=== PATIENT | female | born 1965 | race Caucasian/White ===

== ENCOUNTER 2020-08-03 11:31 | Emergency (ER) | payer OTHER, SELFPAY ==
--- NOTE | ~2020-08-03 | CT_ITS ---
EXAMINATION: CT ABDOMEN AND PELVIS WITHOUT CONTRAST CLINICAL INFORMATION: Abdominal pain and diarrhea with bloating COMPARISON: None TECHNIQUE: Multidetector volumetric imaging was performed from the superior aspect of the liver through the pubic symphysis. Sagittal and coronal reformatted images were obtained on the technologist's workstation. This CT examination was performed using dose optimization techniques as appropriate, variously including the following: *Automated exposure control *Adjustment of mA and/or kV according to patient size (this includes techniques or standardized protocols for targeted exams where dose is matched to indication/reason for exam; i.e. extremities or head) *Use of iterative reconstruction technique DLP: 372 mGy-cm FINDINGS: LUNG BASES: The visualized lung bases are unremarkable. No pleural or pericardial effusion. LIVER, GALLBLADDER, AND BILIARY TREE: The liver is normal in size, shape, and attenuation. No focal hepatic lesion or biliary ductal dilatation is present. Gallbladder surgically absent. PANCREAS: Unremarkable. SPLEEN: Unremarkable. ADRENAL GLANDS: Unremarkable. KIDNEYS AND URETERS: The right kidney appears unremarkable without hydronephrosis, calculi, or suspicious mass. The right ureter appears unremarkable. There is a 2 mm nonobstructing calcification within the lower pole of the left kidney. No hydronephrosis. No focal mass appreciated. Left ureter appears unremarkable. BLADDER: Gallbladder is decompressed. No suspicious findings appreciated. Some phleboliths are seen about the pelvis. GASTROINTESTINAL TRACT: No dilated loops of large or small bowel are evident. No free air or free fluid is identified. No pericolonic inflammatory changes seen. No evidence of acute appendicitis. Calcified density is seen within the as ascending colon. ABDOMINAL WALL: There is a small fat-containing umbilical hernia. LYMPH NODES: There is a borderline enlarged mesenteric lymph nodes seen with short axis diameter of 9 mm. No suspicious lymphadenopathy. VASCULAR: Unremarkable. PELVIC VISCERA: Unremarkable. OSSEOUS STRUCTURES: There is mild scoliosis of the lumbar spine convex right and in the area where there is a compression fracture central and left side superior endplate of L4. There is narrowing of the L3-4 and L5-S1 disc spaces. There is degenerative marginal spurring seen at multiple levels. CT/CT abdomen pelvis wo con IMPRESSION: No evidence of colitis or acute appendicitis. No dilated loops of large or small bowel. No evidence of obstructive uropathy.
[2020-08-03 11:36] VITALS: BP 137/70; PULSE 61; RESP 18; TEMP 37.1; O2SAT 99; BMI 20.7
--- NOTE | 2020-08-03 12:43 | ED.ABDPAIN ---
HPI - Abdominal Pain General Chief Complaint: Abdominal Pain <MEAGAN Page - Last Filed: 08/03/20 16:49> Stated Complaint: stomach pain <MEAGAN Page - Last Filed: 08/03/20 16:49> Time Seen by Provider: 08/03/20 12:09 <MEAGAN Page Last Filed: 08/03/20 16:49> Source: patient <MEAGAN Page - Last Filed: 08/03/20 16:49> Mode of arrival: ambulatory <MEAGAN Page - Last Filed: 08/03/20 16:49> Limitations: language barrier <MEAGAN Page - Last Filed: 08/03/20 16:49> History of Present Illness HPI narrative: 54 y/o female presenting to the ER from home with 2 days of worsening lower abdominal pain, bloating and non-bloody diarrhea. She was recently seen by her doctor at [facility] and diagnosed with bacteria in the intestine and was prescribed Ciprofloxacin. She is a poor historian. She states her diarrhea worsened this morning prompting ER evaluation. She denies fevers or vomiting. No abdominal surgeries in the past. No urinary symptoms or sick contacts. She states since coming to the ER her diarrhea has improved. <MEAGAN Page - Last Filed: 08/03/20 16:49> MD elicited complaint: abdominal pain and other (diarrhea) <MEAGAN Page - Last Filed: 08/03/20 16:49> Pertinent past history: none <MEAGAN Page - Last Filed: 08/03/20 16:49> Onset (ago): day(s) (2) <MEAGAN Page - Last Filed: 08/03/20 16:49> Pain Consistency: intermittent <MEAGAN Page Last Filed: 08/03/20 16:49> Location: RLQ and LLQ <MEAGAN Page Last Filed: 08/03/20 16:49> Severity: moderate <MEAGAN Page Last Filed: 08/03/20 16:49> Quality: cramping <MEAGAN Page - Last Filed: 08/03/20 16:49> Radiation: none <MEAGAN Page Last Filed: 08/03/20 16:49> Migration to: no migration <MEAGAN Page Last Filed: 08/03/20 16:49> Exacerbating factors: eating and movement <MEAGAN Page Last Filed: 08/03/20 16:49> Relieving factors: rest <MEAGAN Page Last Filed: 08/03/20 16:49> Context: recent antibiotic use <MEAGAN Page Last Filed: 08/03/20 16:49> Associated symptoms: nausea and diarrhea <MEAGAN Page Last Filed: 08/03/20 16:49> Related Data Allergies/Adverse Reactions: Allergies Allergy/AdvReac Type Severity Reaction Status Date / Time No Known Allergies Allergy Verified 08/03/20 11:43 <MEAGAN Page Last Filed: 08/03/20 16:49> Review of Systems Review of Systems Constitutional: No Fever, No Chills ENT/Mouth: No sore throat, No Rhinorrhea, No Swallowing Difficulty Cardiovascular: No Chest Pain, No SOB, No Orthopnea, No Edema Respiratory: No Cough, No Sputum, No Wheezing, No dyspnea Gastrointestinal: + Nausea, No Vomiting, + Diarrhea, + abdominal Pain, No Hematochezia, No Melena Genitourinary: No Dysuria, No Urinary Frequency, No Hematuria Musculoskeletal: No joint pain, No Myalgias Skin: No Skin Lesions, No rash Neuro: No Weakness, No Numbness, No Dizziness, No Headache Psych: No Anxiety/Panic, No Depression Heme/Lymph: No Bruising, No Lymphadenopathy Endocrine: No Polyuria, No Polydipsia <MEAGAN Page Last Filed: 08/03/20 16:49> Physical Exam Vital Signs: Vital Signs: Last Vital Signs Temp 98.7 F 08/03/20 11:36 Pulse 61 08/03/20 11:36 Resp 18 08/03/20 11:36 BP 137/70 08/03/20 11:36 Pulse Ox 99 08/03/20 11:36 Body Mass Index 20.7 Appearance: Alert. Oriented X3. No acute distress. Eyes: Pupils equal, round and reactive to light. ENT: Pharynx normal. Neck: Normal inspection. Neck supple. CVS: Normal heart rate and rhythm. Pulses normal. Respiratory: No respiratory distress. Breath sounds normal. Abdomen: Soft with mild lower abdominal tenderness, no rebound or guarding. normal +BS x4 Skin: Skin warm and dry. Normal skin color. Normal skin turgor. No rashes. Extremities: No lower extremity edema. Neuro: Oriented X 3. No motor deficit. No sensory deficit. <MEAGAN Page - Last Filed: 08/03/20 16:49> Vital Signs: Last Vital Signs Temp 98.7 F 08/03/20 11:36 Pulse 61 08/03/20 11:36 Resp 18 08/03/20 11:36 BP 137/70 08/03/20 11:36 Pulse Ox 99 08/03/20 11:36 Body Mass Index 20.7 <Karel Shaikh MD - Last Filed: 08/21/20 13:34> Course Course Course Narrative: 54 y/o female presenting with 2 days of lower abdominal pain and non-bloody diarrhea. Recently started on Cipro by her PCP, unclear why. Concern is for diverticulitis vs C diff collitis. Could also have UTI, gastroenteritis, cholecystitis. Will get lab workup and CT scan for further evaluation. She states her diarrhea has improved since this morning. <MEAGAN Page - Last Filed: 08/03/20 16:49> I have reviewed the chart <Karel Shaikh MD - Last Filed: 08/21/20 13:34> Reevaluation(s) Reevaluation #1: Delay in labs as patient was contemplating wheter or not she wanted to get labs done or not. She is thinking about it and will reassess. <MEAGAN Page - Last Filed: 08/03/20 16:49> Reevaluation #2: Patient finally agreeable to labs but she is refusing an IV. Explained importance of IV for contrast for CT scan but she continued to decline. Will get dry CT which is not preferred. She has had no diarrhea in the last few hours of being in the ER, less likely C diff. <MEAGAN Page - Last Filed: 08/03/20 16:49> Reevaluation #3: WBC is normal as well as LFTs and lipase. CT scan is pending. <MEAGAN Page - Last Filed: 08/03/20 16:49> Additional Reevaluation(s): CT scan was negative. NO episodes of diarrhea while in the ER. Doubt C diff. She is stable for d/c with plans to f/u with her PCP. <MEAGAN Page - Last Filed: 08/03/20 16:49> MDM - Abdominal Pain Lab Data Result diagrams: : 08/03/20 15:01 08/03/20 15:01 <MEAGAN Page - Last Filed: 08/03/20 16:49> Labs: Lab Results 08/03/20 08/03/20 08/03/20 Range/Units 15:01 15:01 15:01 WBC 8.2 (4.8-10.8) X10*3/uL RBC 4.94 (4.20-5.50) X10*6/uL Hgb 14.2 (12.0-16.0) g/dl Hct 44.2 (37-47) % MCV 89.5 (80-98) fL MCH 28.7 (27.0-33.0) pg MCHC 32.1 (31.0-35.0) g/dl RDW 14.2 (11.0-16.0) % Plt Count 218 (160-400) X10*3/uL MPV 9.4 (9.4-12.3) fL Immature Gran % (Auto) 0.2 (0.0-0.4) % Neut % (Auto) 70.4 (45-73) % Lymph % (Auto) 20.5 (20-40) % [place] % (Auto) 5.4 (2-11) % Eos % (Auto) 3.4 (0-4) % Baso % (Auto) 0.1 (0-2) % Lymph # (Auto) 1.7 (1.2-4.9) X10*3/uL [place] # (Auto) 0.4 (0.1-1.2) X10*3/uL Eos # (Auto) 0.3 (0.0-0.4) X10*3/uL Baso # (Auto) 0.0 (0.0-0.2) X10*3/uL Abs Immat Gran (auto) 0.02 (0.00-0.03) X10*3/uL Absolute Neuts (auto) 5.8 (2.0-8.3) X10*3/uL Absolute Nucleated RBC 0.000 (0.0-0.012) X10*3/uL Nucleated RBC % (auto) 0.0 (0.0-0.2) /100WBC Hold Blue Top SEE NOTE Sodium 144 (135-145) mmol/L Potassium 4.2 (3.3-5.1) mmol/L Chloride 109 H (96-108) mmol/L Carbon Dioxide 27 (22-29) mmol/L Anion Gap 12 (12-20) BUN 9 (9-16) mg/dL Creatinine 0.66 (0.5-1.4) mg/dL Estim Creat Clear Calc 72.7 Estimated GFR > 60 Random Glucose 92 (60-115) mg/dL Lactic Acid (0.5-2.0) mmol/L Calcium 9.5 (8.4-10.2) mg/dL Magnesium 2.2 (1.6-2.6) mg/dL Total Bilirubin 0.7 (0.0-1.0) mg/dL Direct Bilirubin 0.2 (0.0-0.5) mg/dL AST 15 (5-31) U/L ALT 14 (0-31) U/L Alkaline Phosphatase 100 (39-117) U/L Total Protein 6.6 (6.5-8.0) g/dL Albumin 4.3 (3.5-5.0) g/dL Lipase (8-78) U/L 08/03/20 08/03/20 Range/Units 15:01 15:01 WBC (4.8-10.8) X10*3/uL RBC (4.20-5.50) X10*6/uL Hgb (12.0-16.0) g/dl Hct (37-47) % MCV (80-98) fL MCH (27.0-33.0) pg MCHC (31.0-35.0) g/dl RDW (11.0-16.0) % Plt Count (160-400) X10*3/uL MPV (9.4-12.3) fL Immature Gran % (Auto) (0.0-0.4) % Neut % (Auto) (45-73) % Lymph % (Auto) (20-40) % [place] % (Auto) (2-11) % Eos % (Auto) (0-4) % Baso % (Auto) (0-2) % Lymph # (Auto) (1.2-4.9) X10*3/uL [place] # (Auto) (0.1-1.2) X10*3/uL Eos # (Auto) (0.0-0.4) X10*3/uL Baso # (Auto) (0.0-0.2) X10*3/uL Abs Immat Gran (auto) (0.00-0.03) X10*3/uL Absolute Neuts (auto) (2.0-8.3) X10*3/uL Absolute Nucleated RBC (0.0-0.012) X10*3/uL Nucleated RBC % (auto) (0.0-0.2) /100WBC Hold Blue Top Sodium (135-145) mmol/L Potassium (3.3-5.1) mmol/L Chloride (96-108) mmol/L Carbon Dioxide (22-29) mmol/L Anion Gap (12-20) BUN (9-16) mg/dL Creatinine (0.5-1.4) mg/dL Estim Creat Clear Calc Estimated GFR Random Glucose (60-115) mg/dL Lactic Acid 0.5 (0.5-2.0) mmol/L Calcium (8.4-10.2) mg/dL Magnesium (1.6-2.6) mg/dL Total Bilirubin (0.0-1.0) mg/dL Direct Bilirubin (0.0-0.5) mg/dL AST (5-31) U/L ALT (0-31) U/L Alkaline Phosphatase (39-117) U/L Total Protein (6.5-8.0) g/dL Albumin (3.5-5.0) g/dL Lipase 41 (8-78) U/L <MEAGAN Page - Last Filed: 08/03/20 16:49> Lab Results 03/08/03/20 08/03/20 Range/Units 15:01 15:01 15:01 WBC 8.2 (4.8-10.8) X10*3/uL RBC 4.94 (4.20-5.50) X10*6/uL Hgb 14.2 (12.0-16.0) g/dl Hct 44.2 (37-47) % MCV 89.5 (80-98) fL MCH 28.7 (27.0-33.0) pg MCHC 32.1 (31.0-35.0) g/dl RDW 14.2 (11.0-16.0) % Plt Count 218 (160-400) X10*3/uL MPV 9.4 (9.4-12.3) fL Immature Gran % (Auto) 0.2 (0.0-0.4) % Neut % (Auto) 70.4 (45-73) % Lymph % (Auto) 20.5 (20-40) % [place] % (Auto) 5.4 (2-11) % Eos % (Auto) 3.4 (0-4) % Baso % (Auto) 0.1 (0-2) % Lymph # (Auto) 1.7 (1.2-4.9) X10*3/uL [place] # (Auto) 0.4 (0.1-1.2) X10*3/uL Eos # (Auto) 0.3 (0.0-0.4) X10*3/uL Baso # (Auto) 0.0 (0.0-0.2) X10*3/uL Abs Immat Gran (auto) 0.02 (0.00-0.03) X10*3/uL Absolute Neuts (auto) 5.8 (2.0-8.3) X10*3/uL Absolute Nucleated RBC 0.000 (0.0-0.012) X10*3/uL Nucleated RBC % (auto) 0.0 (0.0-0.2) /100WBC Hold Blue Top SEE NOTE Sodium 144 (135-145) mmol/L Potassium 4.2 (3.3-5.1) mmol/L Chloride 109 H (96-108) mmol/L Carbon Dioxide 27 (22-29) mmol/L Anion Gap 12 (12-20) BUN 9 (9-16) mg/dL Creatinine 0.66 (0.5-1.4) mg/dL Estim Creat Clear Calc 72.7 Estimated GFR > 60 Random Glucose 92 (60-115) mg/dL Lactic Acid (0.5-2.0) mmol/L Calcium 9.5 (8.4-10.2) mg/dL Magnesium 2.2 (1.6-2.6) mg/dL Total Bilirubin 0.7 (0.0-1.0) mg/dL Direct Bilirubin 0.2 (0.0-0.5) mg/dL AST 15 (5-31) U/L ALT 14 (0-31) U/L Alkaline Phosphatase 100 (39-117) U/L Total Protein 6.6 (6.5-8.0) g/dL Albumin 4.3 (3.5-5.0) g/dL Lipase (8-78) U/L 08/03/20 08/03/20 Range/Units 15:01 15:01 WBC (4.8-10.8) X10*3/uL RBC (4.20-5.50) X10*6/uL Hgb (12.0-16.0) g/dl Hct (37-47) % MCV (80-98) fL MCH (27.0-33.0) pg MCHC (31.0-35.0) g/dl RDW (11.0-16.0) % Plt Count (160-400) X10*3/uL MPV (9.4-12.3) fL Immature Gran % (Auto) (0.0-0.4) % Neut % (Auto) (45-73) % Lymph % (Auto) (20-40) % [place] % (Auto) (2-11) % Eos % (Auto) (0-4) % Baso % (Auto) (0-2) % Lymph # (Auto) (1.2-4.9) X10*3/uL [place] # (Auto) (0.1-1.2) X10*3/uL Eos # (Auto) (0.0-0.4) X10*3/uL Baso # (Auto) (0.0-0.2) X10*3/uL Abs Immat Gran (auto) (0.00-0.03) X10*3/uL Absolute Neuts (auto) (2.0-8.3) X10*3/uL Absolute Nucleated RBC (0.0-0.012) X10*3/uL Nucleated RBC % (auto) (0.0-0.2) /100WBC Hold Blue Top Sodium (135-145) mmol/L Potassium (3.3-5.1) mmol/L Chloride (96-108) mmol/L Carbon Dioxide (22-29) mmol/L Anion Gap (12-20) BUN (9-16) mg/dL Creatinine (0.5-1.4) mg/dL Estim Creat Clear Calc Estimated GFR Random Glucose (60-115) mg/dL Lactic Acid 0.5 (0.5-2.0) mmol/L Calcium (8.4-10.2) mg/dL Magnesium (1.6-2.6) mg/dL Total Bilirubin (0.0-1.0) mg/dL Direct Bilirubin (0.0-0.5) mg/dL AST (5-31) U/L ALT (0-31) U/L Alkaline Phosphatase (39-117) U/L Total Protein (6.5-8.0) g/dL Albumin (3.5-5.0) g/dL Lipase 41 (8-78) U/L <Karel Shaikh MD - Last Filed: 08/21/20 13:34> Critical Care Time Critical Care Time Critical Care Time: No <MEAGAN Page - Last Filed: 08/03/20 16:49> Discharge Plan Discharge Clinical Impression: Diarrhea <MEAGAN Page - Last Filed: 08/03/20 16:49> Patient Disposition: Home, Self-Care <MEAGAN Page - Last Filed: 08/03/20 16:49> Instructions: Acute Diarrhea (ED) <MEAGAN Page - Last Filed: 08/03/20 16:49> Additional Instructions: Your lab workup in the ER today was unremarkable. Your CT scan showed no acute abnormality. Recommend following up with your doctor this week. Recommend a bland diet while you are not feeling well. Drink plenty of water to stay hydrated. If your diarrhea worsens come back to the ER for further evaluation. <MEAGAN Page - Last Filed: 08/03/20 16:49> Stand Alone Forms: Work/School Release <MEAGAN Page - Last Filed: 08/03/20 16:49> Interventions: ED Discharge Assessment Last Done: 08/03/20 17:13 <MEAGAN Page - Last Filed: 08/03/20 16:49> Discharge Date/Time: 08/03/20 17:14 <MEAGAN Page - Last Filed: 08/03/20 16:49> PMFSH Past Medical History Attestation statement: The following information was validated with the patient. <MEAGAN Page - Last Filed: 08/03/20 16:49> Medical History: Medical History Patient denies significant medical history <MEAGAN Page - Last Filed: 08/03/20 16:49> Social History Social History: Social History Advance Directives: No Advance Directives Information Provided: No <MEAGAN Page - Last Filed: 08/03/20 16:49>
--- NOTE | 2020-08-03 13:46 | PC.NURSE ---
this rn and interpretter at bedside, pt has reservations about blood work and iv, asking several questions about their necessity. pt sts give me a minute or two to think about it .
--- NOTE | 2020-08-03 15:09 | PC.NURSE ---
this rn and interpretter again, having discussion w pt whether or not she would like blood work or iv. pt resistant to having iv placed, but willing to have blood drawn. provider aware. will plan for dry ct scan instead. blood labs obtained and sent.
[2020-08-03 15:10] LABS: MANUAL DIFF FLAG NO
[2020-08-03 15:13] LABS: Basophils Percent Auto 0.1 % (0-2); Eosinophils Absolute Auto 0.3 X10*3/uL (0.0-0.4); Eosinophils Percent Auto 3.4 % (0-4); Hematocrit 44.2 % (37-47); Hemoglobin 14.2 g/dl (12.0-16.0); Imm Gran Abs Auto 0.02 X10*3/uL (0.00-0.03); Imm Gran Pct Auto 0.2 % (0.0-0.4); Lymphocytes Absolute Auto 1.7 X10*3/uL (1.2-4.9); Lymphocytes Percent Auto 20.5 % (20-40); Mean Corpuscular HGB Conc 32.1 g/dl (31.0-35.0); Mean Corpuscular Hemoglobin 28.7 pg (27.0-33.0); Mean Corpuscular Volume 89.5 fL (80-98); Mean Platelet Volume 9.4 fL (9.4-12.3); Monocytes Absolute Auto 0.4 X10*3/uL (0.1-1.2); Monocytes Percent Auto 5.4 % (2-11); Neutrophils Absolute Auto 5.8 X10*3/uL (2.0-8.3); Neutrophils Percent Auto 70.4 % (45-73); Platelet Count 218 X10*3/uL (160-400); Red Blood Count 4.94 X10*6/uL (4.20-5.50); Red Cell Distribution Width 14.2 % (11.0-16.0); White Blood Count 8.2 X10*3/uL (4.8-10.8)
[2020-08-03 15:32] LABS: Lactic Acid 0.5 mmol/L (0.5-2.0)
[2020-08-03 15:48] LABS: Lipase 41 U/L (8-78)
[2020-08-03 15:50] LABS: Alanine Aminotransferase 14 U/L (0-31); Albumin Level 4.3 g/dL (3.5-5.0); Alkaline Phosphatase 100 U/L (39-117); Anion Gap 12 (12-20); Aspartate Amino Transferase 15 U/L (5-31); Bilirubin Direct 0.2 mg/dL (0.0-0.5); Bilirubin Total 0.7 mg/dL (0.0-1.0); Blood Urea Nitrogen 9 mg/dL (9-16); Calcium 9.5 mg/dL (8.4-10.2); Carbon Dioxide 27 mmol/L (22-29); Chloride 109 mmol/L (96-108); Creatinine Clr Calc Pharmacy 72.7; Estimated Glomerular Filt Rate > 60; Glucose Random 92 mg/dL (60-115); Magnesium 2.2 mg/dL (1.6-2.6); Potassium 4.2 mmol/L (3.3-5.1); Sodium 144 mmol/L (135-145); Total Protein 6.6 g/dL (6.5-8.0)
== END 2020-08-03 17:14 | disposition home or self-care (01) ==
PROVIDERS: Physician Assistant; Emergency Provider Emergency Medicine; PCP Internal Medicine
DX: R19.7 Diarrhea, unspecified (principal); R10.30 Lower abdominal pain, unspecified
CPT/HCPCS: 36415; 74176; 80048; 80076; 83605; 83690; 83735; 85025; 96360; 99284

== ENCOUNTER 2021-02-17 13:55 | Outpatient (REF) | payer OTHER, SELFPAY ==
[2021-02-17 17:30] LABS: Influenza A PCR NEGATIVE (Negative); Influenza B PCR NEGATIVE (Negative); Resp Syncy Virus RNA Qual PCR NEGATIVE (Negative); SARS COV2 PCR INHOUSE NEGATIVE (Negative)
== END 2021-02-17 13:56 | disposition home or self-care (01) ==
LOC: HO.LAB 13:55
PROVIDERS: Visit Provider Physician Assistant Medical
DX: J06.9 Acute upper respiratory infection, unspecified (principal); Z20.822 Contact with and (suspected) exposure to COVID-19
CPT/HCPCS: 0241U; 36415

== ENCOUNTER 2021-03-12 12:05 | Outpatient (REF) | payer OTHER, SELFPAY ==
--- NOTE | ~2021-03-12 | MM_ITS ---
EXAMINATION: MM SCREENING DIGITAL BREAST TOMOSYNTHESIS, BILATERAL CLINICAL INFORMATION: Screening. Asymptomatic. Status post benign biopsy of the left breast. The lifetime risk of breast cancer based on the Tyrer-Cuzick Model is 5.6%. COMPARISON: Mammography: August 10, 2018 and studies dating back to January 01, 2016 TECHNIQUE: Digital breast tomosynthesis is performed in both the craniocaudal and mediolateral oblique views along with computer-aided detection (CAD). Synthesized 2D images are generated from the tomosynthesis. FINDINGS: There are scattered areas of fibroglandular density (ACR BI-RADS breast composition Category b). There are no significant masses, abnormal calcifications, or other abnormalities. MM/MM tomosynthesis screening BI IMPRESSION: There are no significant changes from prior study. ASSESSMENT: BI-RADS 1: Negative RECOMMENDATION: Routine annual mammography screening. This patient's information was entered into a reminder system with a target due date for their next mammogram.
== END 2021-03-12 12:06 | disposition home or self-care (01) ==
LOC: HO.MAMMO 12:05
PROVIDERS: Visit Provider Internal Medicine
DX: Z12.31 Encounter for screening mammogram for malignant neoplasm of breast (principal)
CPT/HCPCS: 77063; 77067

== ENCOUNTER 2022-08-25 11:16 | Emergency (ER) | payer OTHER, SELFPAY ==
--- NOTE | ~2022-08-25 | XR_ITS ---
EXAMINATION: XR CHEST CLINICAL INFORMATION: Cough and chest pain COMPARISON: None available. TECHNIQUE: Frontal view of the chest was obtained. FINDINGS: The lungs are well expanded. There is no focal consolidation, edema, or effusion. No pneumothorax. The cardiomediastinal silhouette is within normal limits. No acute osseous abnormality. XR/XR chest 1V IMPRESSION: No acute pulmonary disease.
--- NOTE | 2022-08-25 11:20 | ED.CHESTPAIN ---
HPI - Chest Pain General Chief Complaint: Upper Respiratory Symptoms Stated Complaint: chest tightness,diff breathing Time Seen by Provider: 08/25/22 11:49 Related Data Home Medications Medication Instructions Recorded Confirmed cholecalciferol (vitamin D3) 25 25 mcg PO DAILY 12/08/20 02/17/21 mcg (1,000 unit) capsule Previous Rx's Medication Instructions Recorded omeprazole 20 mg capsule,delayed 20 mg PO DAILY #90 caps 03/03/21 release albuterol sulfate 90 mcg/actuation 2 puff inhalation Q4-6H PRN 08/25/22 aerosol inhaler shortness of breath or wheezing #8.5 grams azithromycin 250 mg tablet See Rx Instructions PO .COMPLEX #6 08/25/22 tabs benzonatate 100 mg capsule 100 mg PO TID PRN cough 5 days #15 08/25/22 caps Allergies Allergy/AdvReac Type Severity Reaction Status Date / Time No Known Allergies Allergy Verified 08/25/22 11:26 [facility] Past Medical History Medical History (Updated 08/25/22 @ 13:24 by MEAGAN Tomas) Blurry vision, bilateral GERD (gastroesophageal reflux disease) Hypovitaminosis D Mild asthma Smoker Varicose veins of both lower extremities Surgical History (Updated 12/08/20 @ 17:44 by Elizabeth Rodgers MD) History of tubal ligation Hx laparoscopic cholecystectomy Family History Family History Mother No problems noted. Father Cancer Social History Social History Housing: House Alcohol intake: current Alcohol intake frequency: holidays/special occasions only Alcohol type: beer Patient Tobacco Use Status: Current everyday Tobacco user Tobacco use type: Cigarette Cigarettes Per Day: 8 e-Cigarette/Vaping Use: Never Used Second Hand Smoke Exposure: No Advance Directives: No service: No Current occupational status: employed Current occupational exposures/hazards: No Physical Exam Vital Signs: Vital Signs: Last Vital Signs Temp 98.2 F 08/25/22 11:49 Pulse 63 08/25/22 11:53 Resp 18 08/25/22 11:53 BP 117/64 08/25/22 11:49 Pulse Ox 99 08/25/22 11:49 O2 Del Method Room Air 08/25/22 11:49 BMI result Body Mass Index 22.6 Course Course Course Narrative: CHHAYA--57-year-old female with past medical history of asthma, GERD, presenting to the ED complaining of cough, chills, SOB & CP since last night. States her asthma has been under control for years, doesn't have inhalers or neb machine. Denies fever, travel, sick contacts Coarse cough noted, lungs with slight end exp wheeze, good air movement EKG, Labs, CXR, COVID/FLU ordered Medications Administered Discontinued Medications Generic Name Dose Route Start Last Admin Trade Name Freq PRN Reason Stop Dose Admin Albuterol/Ipratropium 3 ml 08/25/22 11:26 08/25/22 11:52 Albuterol/Iprat 2.5/0.5mg 3 Ml Ampul.Neb INHALE 08/25/22 11:27 3 ml ONCE ONE Administration Medical Decision Making Lab Data 08/25/22 11:34 08/25/22 11:34 Labs: Lab Results 08/25/22 08/25/22 08/25/22 Range/Units 11:34 11:34 11:34 WBC 8.8 (4.8-10.8) X10*3/uL RBC 5.26 (4.20-5.50) X10*6/uL Hgb 15.0 (12.0-16.0) g/dl Hct 46.7 (37.0-47.0) % MCV 88.8 (80.0-98.0) fL MCH 28.5 (27.0-33.0) pg MCHC 32.1 (31.0-35.0) g/dl RDW 14.2 (11.0-16.0) % Plt Count 213 (160-400) X10*3/uL MPV 9.0 L (9.4-12.3) fL Immature Gran % (Auto) 0.1 (0.0-0.4) % Neut % (Auto) 77.1 H (45-73) % Lymph % (Auto) 12.2 L (20-40) % [place] % (Auto) 8.5 (2-11) % Eos % (Auto) 1.6 (0-4) % Baso % (Auto) 0.5 (0-2) % Lymph # (Auto) 1.1 L (1.2-4.9) X10*3/uL [place] # (Auto) 0.8 (0.1-1.2) X10*3/uL Eos # (Auto) 0.1 (0.0-0.4) X10*3/uL Baso # (Auto) 0.0 (0.0-0.2) X10*3/uL Abs Immat Gran (auto) 0.01 (0.00-0.03) X10*3/uL Absolute Neuts (auto) 6.8 (2.0-8.3) x10*3/uL Absolute Nucleated RBC 0.000 (0.0-0.012) X10*3/uL Nucleated RBC % (auto) 0.0 (0.0-0.2) /100WBC Sodium 142 (135-145) mmol/L Potassium 4.9 (3.3-5.1) mmol/L Chloride 106 (96-108) mmol/L Carbon Dioxide 30 H (22-29) mmol/L Anion Gap 11 L (12-20) BUN 8 L (9-16) mg/dL Creatinine 0.76 (0.5-1.4) mg/dL Estim Creat Clear Calc 60.9 Estimated GFR > 60 Random Glucose 111 (60-115) mg/dL Calcium 10.1 D (8.4-10.2) mg/dL Total Bilirubin 0.7 (0.0-1.0) mg/dL Direct Bilirubin 0.2 (0.0-0.5) mg/dL AST 20 (5-31) U/L ALT 22 (0-31) U/L Alkaline Phosphatase 134 H (39-117) U/L Troponin I High Sens 4.0 (<3.5-17.0) ng/L Total Protein 6.8 (6.5-8.0) g/dL Albumin 4.5 (3.5-5.0) g/dL COVID-19 ([facility]) (Negative) COVID-19 Clin Com Influenza Type A ([facility]) (Negative) Influenza Type B (W[facility]IAM) (Negative) Influenza A & B Note 08/25/22 08/25/22 Range/Units 11:34 11:34 WBC (4.8-10.8) X10*3/uL RBC (4.20-5.50) X10*6/uL Hgb (12.0-16.0) g/dl Hct (37.0-47.0) % MCV (80.0-98.0) fL MCH (27.0-33.0) pg MCHC (31.0-35.0) g/dl RDW (11.0-16.0) % Plt Count (160-400) X10*3/uL MPV (9.4-12.3) fL Immature Gran % (Auto) (0.0-0.4) % Neut % (Auto) (45-73) % Lymph % (Auto) (20-40) % [place] % (Auto) (2-11) % Eos % (Auto) (0-4) % Baso % (Auto) (0-2) % Lymph # (Auto) (1.2-4.9) X10*3/uL [place] # (Auto) (0.1-1.2) X10*3/uL Eos # (Auto) (0.0-0.4) X10*3/uL Baso # (Auto) (0.0-0.2) X10*3/uL Abs Immat Gran (auto) (0.00-0.03) X10*3/uL Absolute Neuts (auto) (2.0-8.3) x10*3/uL Absolute Nucleated RBC (0.0-0.012) X10*3/uL Nucleated RBC % (auto) (0.0-0.2) /100WBC Sodium (135-145) mmol/L Potassium (3.3-5.1) mmol/L Chloride (96-108) mmol/L Carbon Dioxide (22-29) mmol/L Anion Gap (12-20) BUN (9-16) mg/dL Creatinine (0.5-1.4) mg/dL Estim Creat Clear Calc Estimated GFR Random Glucose (60-115) mg/dL Calcium (8.4-10.2) mg/dL Total Bilirubin (0.0-1.0) mg/dL Direct Bilirubin (0.0-0.5) mg/dL AST (5-31) U/L ALT (0-31) U/L Alkaline Phosphatase (39-117) U/L Troponin I High Sens (<3.5-17.0) ng/L Total Protein (6.5-8.0) g/dL Albumin (3.5-5.0) g/dL COVID-19 ([facility]) Negative (Negative) COVID-19 Clin Com See Note Influenza Type A (WILLIAM) Negative (Negative) Influenza Type B (WILLIAM) Negative (Negative) Influenza A & B Note See Note Discharge Plan Discharge Clinical Impression: Bronchitis Patient Disposition: Home, Self-Care Instructions: Acute Bronchitis (ED) Additional Instructions: Regrese al servicio de urgencias por cualquier dificultad para respirar, hinchaz?n de las piernas, dolor en la pantorrilla, tos con karine, dificultad para respirar, dolor en el pecho, fiebre intratable, debilidad, escalofr?os, dolor en el pecho al inspirar o cualquier otro s?ntoma preocupante. Por favor, caroline un seguimiento con el proveedor de atenci?n primaria. Prescriptions: New albuterol sulfate 90 mcg/actuation HFA aerosol inhaler 2 puff inhalation Q4-6H PRN (Reason: shortness of breath or wheezing) Qty: 8.5 0RF azithromycin 250 mg tablet See Rx Instructions .ROUTE .COMPLEX Qty: 6 0RF Rx Instructions: For 250 mg dose pack: take 500 mg today (day 1), then 250 mg for 4 days (days 2-5) benzonatate 100 mg capsule 100 mg PO TID PRN (Reason: cough) 5 Days Qty: 15 0RF No Action omeprazole 20 mg capsule,delayed release(DR/EC) 20 mg PO DAILY Qty: 90 0RF cholecalciferol (vitamin D3) 25 mcg (1,000 unit) capsule 25 mcg PO DAILY Stand Alone Forms: Work/School Release Interventions: ED Discharge Assessment Last Done: 08/25/22 14:04 Discharge Date/Time: 08/25/22 14:06 Print Language: Kittitian
--- NOTE | 2022-08-25 11:22 | ECG_ITS ---
Test Reason : chest tightness Blood Pressure : / mmHG Vent. Rate : 060 BPM Atrial Rate : 060 BPM P-R Int : 116 ms QRS Dur : 076 ms QT Int : 396 ms P-R-T Axes : 063 030 047 degrees QTc Int : 396 ms Normal sinus rhythm Normal ECG No previous ECGs available Referred By: Ammy Izquierdo Electronically Signed By:SUSANA CAM
[2022-08-25 11:23] VITALS: BP 93/58; PULSE 83; RESP 22; TEMP 37.6; O2SAT 98; BMI 22.6
[2022-08-25 11:40] LABS: MANUAL DIFF FLAG NO
[2022-08-25 11:45] LABS: Basophils Percent Auto 0.5 % (0-2); Eosinophils Absolute Auto 0.1 X10*3/uL (0.0-0.4); Eosinophils Percent Auto 1.6 % (0-4); Hematocrit 46.7 % (37.0-47.0); Imm Gran Abs Auto 0.01 X10*3/uL (0.00-0.03); Imm Gran Pct Auto 0.1 % (0.0-0.4); Lymphocytes Absolute Auto 1.1 X10*3/uL (1.2-4.9); Lymphocytes Percent Auto 12.2 % (20-40); Mean Corpuscular HGB Conc 32.1 g/dl (31.0-35.0); Mean Corpuscular Hemoglobin 28.5 pg (27.0-33.0); Mean Corpuscular Volume 88.8 fL (80.0-98.0); Monocytes Absolute Auto 0.8 X10*3/uL (0.1-1.2); Monocytes Percent Auto 8.5 % (2-11); Neutrophils Absolute Auto 6.8 x10*3/uL (2.0-8.3); Neutrophils Percent Auto 77.1 % (45-73); Platelet Count 213 X10*3/uL (160-400); Red Blood Count 5.26 X10*6/uL (4.20-5.50); Red Cell Distribution Width 14.2 % (11.0-16.0); White Blood Count 8.8 X10*3/uL (4.8-10.8)
[2022-08-25 11:49] VITALS: BP 117/64; PULSE 56; RESP 14; TEMP 36.8; O2SAT 99
[2022-08-25] MEDS: Albuterol/Iprat 2.5/0.5MG 3 ML AMPUL.NEB INHALE (11:52)
[2022-08-25 11:53] VITALS: PULSE 63; RESP 18; O2SAT 97
[2022-08-25 11:59] LABS: Alanine Aminotransferase 22 U/L (0-31); Albumin Level 4.5 g/dL (3.5-5.0); Alkaline Phosphatase 134 U/L (39-117); Anion Gap 11 (12-20); Aspartate Amino Transferase 20 U/L (5-31); Bilirubin Direct 0.2 mg/dL (0.0-0.5); Bilirubin Total 0.7 mg/dL (0.0-1.0); Blood Urea Nitrogen 8 mg/dL (9-16); COVID-19 Test Negative (Negative); Calcium 10.1 mg/dL (8.4-10.2); Carbon Dioxide 30 mmol/L (22-29); Chloride 106 mmol/L (96-108); Creatinine Clr Calc Pharmacy 60.9; Estimated Glomerular Filt Rate > 60; Glucose Random 111 mg/dL (60-115); IDNOW Serial# 08D9AD1C; IDNOW Serial# BCCEAD1C; Influenza A Negative (Negative); Influenza B2 Negative (Negative); Potassium 4.9 mmol/L (3.3-5.1); Sodium 142 mmol/L (135-145); Total Protein 6.8 g/dL (6.5-8.0)
--- NOTE | 2022-08-25 12:57 | ED.GENADULT ---
HPI - General Adult General Chief complaint: Upper Respiratory Symptoms Stated complaint: chest tightness,diff breathing Time Seen by Provider: 08/25/22 11:49 Source: patient Mode of arrival: ambulatory Limitations: no limitations History of Present Illness HPI narrative: 57-year-old female presents to the ED for coughing with white phleghms, bodyachess, chills, and chest tightness since last night. Patient denies any leg swelling, calf pain, coughing up blood, recent long travel, recent surgery, or chest pain/shortness of breath on exertion. Patient denies pleurisy. Patient denies estrogen hormone use. Related Data Home Medications Medication Instructions Recorded Confirmed cholecalciferol (vitamin D3) 25 25 mcg PO DAILY 12/08/20 02/17/21 mcg (1,000 unit) capsule Previous Rx's Medication Instructions Recorded omeprazole 20 mg capsule,delayed 20 mg PO DAILY #90 caps 03/03/21 release albuterol sulfate 90 mcg/actuation 2 puff inhalation Q4-6H PRN 08/25/22 aerosol inhaler shortness of breath or wheezing #8.5 grams azithromycin 250 mg tablet See Rx Instructions PO .COMPLEX #6 08/25/22 tabs benzonatate 100 mg capsule 100 mg PO TID PRN cough 5 days #15 08/25/22 caps Allergies Allergy/AdvReac Type Severity Reaction Status Date / Time No Known Allergies Allergy Verified 08/25/22 11:26 Review of Systems Review of Systems: Cough, white phlegm, body aches, chills. Yes all other systems are reviewed and are negative PMFSH Past Medical History Medical History (Updated 08/25/22 @ 13:24 by MEAGAN Tomas) Blurry vision, bilateral GERD (gastroesophageal reflux disease) Hypovitaminosis D Mild asthma Smoker Varicose veins of both lower extremities Surgical History (Updated 12/08/20 @ 17:44 by Elizabeth Rodgers MD) History of tubal ligation Hx laparoscopic cholecystectomy Family History Family History Mother No problems noted. Father Cancer Social History Social History Housing: House Alcohol intake: current Alcohol intake frequency: holidays/special occasions only Alcohol type: beer Patient Tobacco Use Status: Current everyday Tobacco user Tobacco use type: Cigarette Cigarettes Per Day: 8 e-Cigarette/Vaping Use: Never Used Second Hand Smoke Exposure: No Advance Directives: No service: No Current occupational status: employed Current occupational exposures/hazards: No Physical Exam ED Vital Signs: Vital Signs - 24 hr 08/25/22 11:23 08/25/22 11:49 08/25/22 11:53 Temperature 99.6 F 98.2 F Pulse Rate 83 56 63 Respiratory Rate 22 H 14 18 Blood Pressure 93/58 L 117/64 Pulse Oximetry 98 99 Oxygen Delivery Method Room Air Room Air BMI result Body Mass Index 22.6 Const General: cooperative, healthy appearing, comfortable, no acute distress, well developed, alert, awake and Physically active Orientation/consciousness: oriented to person, oriented to place, oriented to time and patient oriented x3 HENMT Head: Yes normal to inspection, Yes No palpable skull fracture present, Yes normocephalic, Yes atraumatic and No abrasion Eyes General: appearance normal, both eyes and all related structures Neck Neck: Yes normal visual inspection, Yes full ROM, Yes no lymphadenopathy, Yes no meningeal signs, Yes trachea midline, Yes supple, No anterior neck swelling and No tender Chest Chest palpation & inspection: normal inspection of the chest and normal palpation of entire chest wall Resp Effort & Inspection: normal respiratory effort and able to speak in complete sentences Auscultation: clear to auscultation bilaterally Cardio Jugular venous distension: no JVD Heart sounds: S1 normal heart sound present and S2 normal heart sound present GI Inspection: Yes normal to inspection and No abdominal wall ecchymosis Palpation (GI): Soft to palpation, not firm, nontender, no guarding and not rigid General: No CVA tenderness and Yes no CVA tenderness Back/Spine/Pelvis Back: no CVA tenderness, No CVA tenderness and No back tenderness Skin General skin exam: no rashes or lesions noted and elasticity normal Neuro General: oriented to person, oriented to place, oriented to time, patient oriented x3, gait normal, tone normal, moves all extremities, Normal light touch and pain sensation, no meningeal signs, no focal motor deficits, CN's II-XI intact bilaterally and normal sensation to monofilament Extrem Other: Bilateral lower extremities negative for swelling, pitting edema, calf tenderness General: Yes normal to inspection and Yes full ROM Psych Appearance: grossly normal, well kempt and not disheveled Course Course Course Narrative: Labs COVID influenza saws chest x-ray ordered Reevaluation(s) Reevaluation #1: EKG negative STEMI. Troponin negative after having symptoms for over 12 hours. Patient denies any distress. Not suspecting pulmonary embolus. Not suspecting heart failure. Patient will be discharged with albuterol inhaler, azithromycin, and Tessalon Perles. Time: 13:19 Medications Administered Discontinued Medications Generic Name Dose Route Start Last Admin Trade Name Freq PRN Reason Stop Dose Admin Albuterol/Ipratropium 3 ml 08/25/22 11:26 08/25/22 11:52 Albuterol/Iprat 2.5/0.5mg 3 Ml Ampul.Neb INHALE 08/25/22 11:27 3 ml ONCE ONE Administration Medical Decision Making Medical Decision Making [facility] Narrative: 57-year-old female presents to ED for cough, body aches, chills, and chest tightness. Cardiac workup negative. Presented as bronchitis. NOt suspecting pulmonary embolus or heart failure. Labs EKG chest x-ray normal. Patient will be discharged with albuterol inhaler, Tessalon Perles, and azithromycin Differential Diagnosis Differential Diagnoses: The differential diagnosis associated with the presentation includes (Bronchitis, pneumonia, andmyo cardiac infarction, CHF) Admission/Observation Consideration of admission/observation: Escalation of care including admission/observation considered Lab Data [facility] Lab Attestation statement: I reviewed the patient's lab results. 08/25/22 11:34 08/25/22 11:34 Labs: Lab Results 08/25/22 08/25/22 08/25/22 Range/Units 11:34 11:34 11:34 WBC 8.8 (4.8-10.8) X10*3/uL RBC 5.26 (4.20-5.50) X10*6/uL Hgb 15.0 (12.0-16.0) g/dl Hct 46.7 (37.0-47.0) % MCV 88.8 (80.0-98.0) fL MCH 28.5 (27.0-33.0) pg MCHC 32.1 (31.0-35.0) g/dl RDW 14.2 (11.0-16.0) % Plt Count 213 (160-400) X10*3/uL MPV 9.0 L (9.4-12.3) fL Immature Gran % (Auto) 0.1 (0.0-0.4) % Neut % (Auto) 77.1 H (45-73) % Lymph % (Auto) 12.2 L (20-40) % Tyler % (Auto) 8.5 (2-11) % Eos % (Auto) 1.6 (0-4) % Baso % (Auto) 0.5 (0-2) % Lymph # (Auto) 1.1 L (1.2-4.9) X10*3/uL Tyler # (Auto) 0.8 (0.1-1.2) X10*3/uL Eos # (Auto) 0.1 (0.0-0.4) X10*3/uL Baso # (Auto) 0.0 (0.0-0.2) X10*3/uL Abs Immat Gran (auto) 0.01 (0.00-0.03) X10*3/uL Absolute Neuts (auto) 6.8 (2.0-8.3) x10*3/uL Absolute Nucleated RBC 0.000 (0.0-0.012) X10*3/uL Nucleated RBC % (auto) 0.0 (0.0-0.2) /100WBC Sodium 142 (135-145) mmol/L Potassium 4.9 (3.3-5.1) mmol/L Chloride 106 (96-108) mmol/L Carbon Dioxide 30 H (22-29) mmol/L Anion Gap 11 L (12-20) BUN 8 L (9-16) mg/dL Creatinine 0.76 (0.5-1.4) mg/dL Estim Creat Clear Calc 60.9 Estimated GFR > 60 Random Glucose 111 (60-115) mg/dL Calcium 10.1 D (8.4-10.2) mg/dL Total Bilirubin 0.7 (0.0-1.0) mg/dL Direct Bilirubin 0.2 (0.0-0.5) mg/dL AST 20 (5-31) U/L ALT 22 (0-31) U/L Alkaline Phosphatase 134 H (39-117) U/L Troponin I High Sens 4.0 (<3.5-17.0) ng/L Total Protein 6.8 (6.5-8.0) g/dL Albumin 4.5 (3.5-5.0) g/dL COVID-19 ([facility]) (Negative) COVID-19 Clin Com Influenza Type A (WILLIAM) (Negative) Influenza Type B (W[facility]IAM) (Negative) Influenza A & B Note 08/25/22 08/25/22 Range/Units 11:34 11:34 WBC (4.8-10.8) X10*3/uL RBC (4.20-5.50) X10*6/uL Hgb (12.0-16.0) g/dl Hct (37.0-47.0) % MCV (80.0-98.0) fL MCH (27.0-33.0) pg MCHC (31.0-35.0) g/dl RDW (11.0-16.0) % Plt Count (160-400) X10*3/uL MPV (9.4-12.3) fL Immature Gran % (Auto) (0.0-0.4) % Neut % (Auto) (45-73) % Lymph % (Auto) (20-40) % Tyler % (Auto) (2-11) % Eos % (Auto) (0-4) % Baso % (Auto) (0-2) % Lymph # (Auto) (1.2-4.9) X10*3/uL Tyler # (Auto) (0.1-1.2) X10*3/uL Eos # (Auto) (0.0-0.4) X10*3/uL Baso # (Auto) (0.0-0.2) X10*3/uL Abs Immat Gran (auto) (0.00-0.03) X10*3/uL Absolute Neuts (auto) (2.0-8.3) x10*3/uL Absolute Nucleated RBC (0.0-0.012) X10*3/uL Nucleated RBC % (auto) (0.0-0.2) /100WBC Sodium (135-145) mmol/L Potassium (3.3-5.1) mmol/L Chloride (96-108) mmol/L Carbon Dioxide (22-29) mmol/L Anion Gap (12-20) BUN (9-16) mg/dL Creatinine (0.5-1.4) mg/dL Estim Creat Clear Calc Estimated GFR Random Glucose (60-115) mg/dL Calcium (8.4-10.2) mg/dL Total Bilirubin (0.0-1.0) mg/dL Direct Bilirubin (0.0-0.5) mg/dL AST (5-31) U/L ALT (0-31) U/L Alkaline Phosphatase (39-117) U/L Troponin I High Sens (<3.5-17.0) ng/L Total Protein (6.5-8.0) g/dL Albumin (3.5-5.0) g/dL COVID-19 ([facility]) Negative (Negative) COVID-19 Clin Com See Note Influenza Type A (WILLIAM) Negative (Negative) Influenza Type B (WILLIAM) Negative (Negative) Influenza A & B Note See Note Independent Interpretation I performed an independent interpretation of an: EKG (Normal sinus rhythm. Normal EKG. Ventricular rate 60. OH interval 116. Care at 76. QTC 396. Negative STEMI) Radiology Impression Discussion of test interpretation with radiology: I have reviewed the radiologist's reading. Prescription Management I considered prescription management with: Antibiotic and Other (Albuterol inhaler and Tessalon Perles) Discharge Plan Discharge Clinical Impression: Bronchitis Patient Disposition: Home, Self-Care Instructions: Acute Bronchitis (ED) Additional Instructions: Regrese al servicio de urgencias por cualquier dificultad para respirar, hinchaz?n de las piernas, dolor en la pantorrilla, tos con karine, dificultad para respirar, dolor en el pecho, fiebre intratable, debilidad, escalofr?os, dolor en el pecho al inspirar o cualquier otro s?ntoma preocupante. Por favor, caroline un seguimiento con el proveedor de atenci?n primaria. Prescriptions: New albuterol sulfate 90 mcg/actuation HFA aerosol inhaler 2 puff inhalation Q4-6H PRN (Reason: shortness of breath or wheezing) Qty: 8.5 0RF azithromycin 250 mg tablet See Rx Instructions .ROUTE .COMPLEX Qty: 6 0RF Rx Instructions: For 250 mg dose pack: take 500 mg today (day 1), then 250 mg for 4 days (days 2-5) benzonatate 100 mg capsule 100 mg PO TID PRN (Reason: cough) 5 Days Qty: 15 0RF No Action omeprazole 20 mg capsule,delayed release(DR/EC) 20 mg PO DAILY Qty: 90 0RF cholecalciferol (vitamin D3) 25 mcg (1,000 unit) capsule 25 mcg PO DAILY Stand Alone Forms: Work/School Release Interventions: ED Discharge Assessment Last Done: 08/25/22 14:04 Discharge Date/Time: 08/25/22 14:06 Print Language: Telugu
== END 2022-08-25 14:06 | disposition home or self-care (01) ==
PROVIDERS: Physician Assistant; Emergency Provider Emergency Medicine
DX: J40 Bronchitis, not specified as acute or chronic (principal); Z20.822 Contact with and (suspected) exposure to COVID-19; F17.200 Nicotine dependence, unspecified, uncomplicated
CPT/HCPCS: 71045; 80048; 80076; 84484; 85025; 87502; 87635; 93005; 94640; 99284

== ENCOUNTER 2022-10-23 14:11 | Emergency (ER) | payer OTHER, SELFPAY ==
[2022-10-23 14:13] VITALS: BP 143/82; PULSE 85; RESP 18; TEMP 36.6; O2SAT 98; BMI 22.7
--- NOTE | 2022-10-23 14:13 | ED_ITS ---
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 Patient states that she has had right sided low back pain for 3 weeks that radiates down her right leg. Patient denies any dizziness, lightheadedness, abdominal pain, nausea, vomiting, fever, chills, blurry vision, double vision, loss of vision, chest pain, difficulty breathing, shortness of breath, night sweats, pain with urination, increased urinary frequency, increased urinary urgency, blood in her urine or stool, syncope or a near syncopal episode, recent trauma or falls, bowel incontinence, bladder incontinence, bowel retention, bladder retention, or any other complaints at this time. Onset (ago): week(s) (3) Location: back Radiation: extremity Severity: mild Severity scale (1-10): 3 Quality: aching Pain Consistency: intermittent Relieving factors: none Exacerbating factors: none Associated symptoms: denies other symptoms Treatments prior to arrival: none Related Data Home Medications Medication Instructions Recorded Confirmed cholecalciferol (vitamin D3) 25 25 mcg PO DAILY 12/08/20 02/17/21 mcg (1,000 unit) capsule Previous Rx's Medication Instructions Recorded omeprazole 20 mg capsule,delayed 20 mg PO DAILY #90 caps 03/03/21 release albuterol sulfate 90 mcg/actuation 2 puff inhalation Q4-6H PRN 08/25/22 aerosol inhaler shortness of breath or wheezing #8.5 grams azithromycin 250 mg tablet See Rx Instructions PO .COMPLEX #6 08/25/22 tabs benzonatate 100 mg capsule 100 mg PO TID PRN cough 5 days #15 08/25/22 caps cyclobenzaprine 5 mg tablet 5 mg PO TID PRN muscle spasm 7 10/23/22 days #21 tabs prednisone 20 mg tablet 20 mg PO DAILY 7 days #7 tabs 10/23/22 Allergies Allergy/AdvReac Type Severity Reaction Status Date / Time No Known Allergies Allergy Verified 08/25/22 11:26 Review of Systems Constitutional: Constitutional: Reports no additional constitutional complaints, Denies chills, Denies fever(s) and Denies night sweats Eyes: Eyes: Reports no additional eye complaints, Denies blurry vision, Denies change in vision, Denies diplopia, Denies eye discharge, Denies loss of vision and Denies eye pain ENT: Denies dizziness Cardiovascular: Cardiovascular: Reports no additional cardiovascular complaints, Denies chest pain, Denies lightheadedness, Denies Loss of Consciousness and Denies dyspnea Respiratory: Respiratory: Reports no additional respiratory complaints and Denies dyspnea Gastrointestinal: Gastrointestinal: Reports no additional gastrointestinal complaints, Denies abdominal pain, Denies melena, Denies hematochezia, Denies change in bowel habits and Denies change in stool character Genitourinary: Genitourinary: Denies hematuria, Denies urinary frequency, Denies dysuria, Denies urinary incontinence, Denies urinary hesitancy and Denies urinary urgency Musculoskeletal: Musculoskeletal: Reports no additional musculoskeletal complaints, Reports back pain, Denies numbness and Denies tingling Neurologic: Denies dizziness, Denies loss of vision, Denies numbness and Denies tingling Psychiatric: Psychiatric: Reports no additional psychiatric complaints Endocrine: Endocrine: Reports no additional endocrine complaints Hematologic/Lymphatic: Hematologic/Lymphatic: Reports no additional hematologic/lymphatic complaints Allergic/Immunologic: Allergic/Immunologic: Reports no additional allergic/immunologic complaints PMF Past Medical History Attestation statement: The following information was validated with the patient. Source: old records reviewed and nursing notes reviewed Medical History Blurry vision, bilateral GERD (gastroesophageal reflux disease) Hypovitaminosis D Mild asthma Smoker Varicose veins of both lower extremities Surgical History History of tubal ligation Hx laparoscopic cholecystectomy Family History Family History Mother No problems noted. Father Cancer Social History Social History Housing: House Alcohol intake: current Alcohol intake frequency: holidays/special occasions only Alcohol type: beer Patient Tobacco Use Status: Current everyday Tobacco user Tobacco use type: Cigarette Cigarettes Per Day: 8 e-Cigarette/Vaping Use: Never Used Second Hand Smoke Exposure: No Advance Directives: No Advance Directives Information Provided: No service: No Current occupational status: employed Current occupational exposures/hazards: No Physical Exam ED Vital Signs: Vital Signs - 24 hr 10/23/22 14:13 Temperature 98 F Pulse Rate 85 Respiratory Rate 18 Blood Pressure 143/82 H Pulse Oximetry 98 Oxygen Delivery Method Room Air BMI result Body Mass Index 22.7 Const General: cooperative, no acute distress, alert and awake Nutritional Appearance: well nourished Orientation/consciousness: patient oriented x3 Limitations: no limitations HENMT Head: Yes normal to inspection and Yes atraumatic Ears: hearing grossly normal bilaterally and external ears normal General nose exam: Normal external nose present, no nasal discharge noted and no epistaxis Face and sinus: Yes normal facial exam, No abrasion and No laceration Mouth: Normal oral and palatal mucosa present, no drooling and no muffled voice Eyes General: appearance normal, both eyes and all related structures Periorbital: periorbital findings normal Eyelids: Yes eyelids normal Conjunctivae: conjunctivae normal Pupils: Equal, round and reactive pupils present EOM: EOMs intact bilaterally Neck Neck: Yes normal visual inspection, Yes full ROM and Yes no lymphadenopathy Chest Chest palpation & inspection: normal inspection of the chest Resp Effort & Inspection: normal respiratory effort and able to speak in complete sentences Auscultation: clear to auscultation bilaterally Cardio Rate: regular rate Rhythm: regular rhythm GI Inspection: Yes normal to inspection General: Yes no CVA tenderness Back/Spine/Pelvis Back: no CVA tenderness Cervical Spine: normal cervical lordosis and cervical ROM normal Thoracic/Lumbar Spine: thoracic and lumbar spine normal to inspection and thoraco-lumbar ROM normal Neuro General: patient oriented x3 and moves all extremities Cranial nerves: Yes Equal, round and reactive pupils present Cognition (Neuro): normal cognition Motor exam (neuro): 5/5 motor strength present throughout Sensory Exam: Normal double simultaneous stimulation for sensation Coordination: [id number] test normal Extrem General: Yes normal to inspection, Yes full ROM and Yes capillary refill normal Psych Appearance: grossly normal Mental Status: mental status grossly normal Affect: normal affect Attitude: cooperative Thought process: Normal thought process present Thought content: Normal thought content present Insight: Good insight present (Psych) Course Course Course Narrative: This is an RME: Additional HPI, ROS, PE not included below will be deferred to primary provider. 57 year old female presents w/ R sided lower back pain w/ radiation to RLE patient denies red flag sx. PE ambulatory into triage. Plan- tordol lidocaine Medications Administered Discontinued Medications Generic Name Dose Route Start Last Admin Trade Name [place] PRN Reason Stop Dose Admin Cyclobenzaprine HCl 5 mg 10/23/22 16:15 10/23/22 16:29 Cyclobenzaprine Hcl 5 Mg Tablet PO 10/23/22 16:16 5 mg ONCE ONE Administration Ketorolac Tromethamine 30 mg 10/23/22 14:14 10/23/22 15:29 Ketorolac Tromethamine 15 Mg/Ml Vial IM 10/23/22 14:15 Not Given ONCE ONE Ketorolac Tromethamine 15 mg 10/23/22 16:15 10/23/22 16:29 Ketorolac Tromethamine 15 Mg/Ml Vial IM 10/23/22 16:16 15 mg ONCE ONE Administration Lidocaine 1 patch 10/23/22 14:14 10/23/22 15:22 Lidocaine 4 % Patch Adh..Patch TRANSDERMA 10/23/22 14:15 1 patch ONCE ONE Administration Protocol Prednisone 20 mg 10/23/22 16:15 10/23/22 16:29 Prednisone 20 Mg Tablet PO 10/23/22 16:16 20 mg ONCE ONE Administration Medical Decision Making Medical Decision Making [facility] Narrative: Patient is a 57 year old assigned female at with a history of asthma and GERD presenting to the emergency department today with right sided low back pain. Patient's physical exam was unremarkable. Patient's urine showed no acute process. I explained my physical exam findings as well as all test results to the patient. I answered all questions asked by the patient. Patient received IM Toradol which she stated helped her symptoms significantly. I stressed the impor tance of the patient taking her medication as prescribed. I stressed the importance of the patient following up with her primary care provider. I stressed the importance of the patient returning to the emergency department immediately if her symptoms were to worsen or if she were to develop any dizziness, shortness of breath, difficulty breathing, chest pain, blurry vision, loss of vision, nausea, vomiting, abdominal pain, fever, chills, back pain, or any other complaints. Patient verbalized agreement and understanding with this treatment plan and discharge. Differential Diagnosis Differential Diagnoses: The differential diagnosis associated with the presentation includes right sided low back pain Lab Data [facility] Lab Attestation statement: I reviewed the patient's lab results. My interpretation of these studies and their corresponding values is that they are grossly normal. Labs: Lab Results 10/23/22 Range/Units 15:26 Urine Color Yellow Urine Appearance Clear Urine pH 6.0 (5.0-9.0) Ur Specific [place] <= 1.005 (1.005-1.025) Urine Protein Negative (Neg-Trace) mg/dL Urine Glucose (UA) Negative (Negative) mg/dL Urine Ketones Negative (Negative) mg/dL Urine Blood Negative (Negative) Urine Nitrite Negative (Negative) Ur Leukocyte Esterase Negative (Negative) Discharge Plan Discharge Clinical Impression: Low back pain Patient Disposition: Home, Self-Care Instructions: Acute Low Back Pain (ED) Additional Instructions: Follow up with your primary care provider. Return to the emergency department immediately if your symptoms worsen or if you develop any dizziness, shortness of breath, difficulty breathing, chest pain, blurry vision, loss of vision, nausea, vomiting, abdominal pain, fever, chills, back pain, or any other complaints. Carla un seguimiento con webb proveedor de atenci?n primaria. Regrese a la mya de emergencias de inmediato si ying s?ntomas empeoran o si presenta mareos, dificultad para respirar, dolor de pecho, visi?n borrosa, p?rdida de la visi?n, n?useas, v?mitos, dolor abdominal, fiebre, escalofr?os, dolor de espalda o cualquier otras quejas. Prescriptions: New cyclobenzaprine 5 mg tablet 5 mg PO TID PRN (Reason: muscle spasm) 7 Days Qty: 21 0RF prednisone 20 mg tablet 20 mg PO DAILY 7 Days Qty: 7 0RF No Action omeprazole 20 mg capsule,delayed release(DR/EC) 20 mg PO DAILY Qty: 90 0RF albuterol sulfate 90 mcg/actuation HFA aerosol inhaler 2 puff inhalation Q4-6H PRN (Reason: shortness of breath or wheezing) Qty: 8.5 0RF azithromycin 250 mg tablet See Rx Instructions .ROUTE .COMPLEX Qty: 6 0RF Rx Instructions: For 250 mg dose pack: take 500 mg today (day 1), then 250 mg for 4 days (days 2-5) benzonatate 100 mg capsule 100 mg PO TID PRN (Reason: cough) 5 Days Qty: 15 0RF cholecalciferol (vitamin D3) 25 mcg (1,000 unit) capsule 25 mcg PO DAILY Referrals: Elizabeth Lance MD [Primary Care Provider] - Stand Alone Forms: Work/School Release Interventions: ED Discharge Assessment Last Done: 10/23/22 16:35 Discharge Date/Time: 10/23/22 16:36 Print Language: Mohawk
[2022-10-23] MEDS: Lidocaine 4 % Patch ADH..PATCH 1 PATCH TRANSDERMA (15:22)
--- NOTE | 2022-10-23 15:28 | PC.NURSE ---
pt medicated per MAR- pt refuses toradol at this time as she would like to discuss it use with the provider, lidocaine patch applied to lower back as directed. UA sent
[2022-10-23 15:32] LABS: Appearance Urine Clear; Color Urine Yellow; Glucose Urine UA Negative (Negative); Leukocyte Esterase Urine Negative (Negative); Nitrite Urine Negative (Negative); Specific Gravity - Urine <= 1.005 (1.005-1.025); Urine Blood Negative (Negative); Urine Ketones Negative (Negative); Urine Protein Negative (Neg-Trace)
[2022-10-23] MEDS: Cyclobenzaprine HCl 5 MG TABLET PO (16:29)
[2022-10-23] MEDS: Ketorolac Tromethamine 15 MG/ML VIAL IM (16:29)
[2022-10-23] MEDS: predniSONE 20 MG TABLET PO (16:29)
== END 2022-10-23 16:36 | disposition home or self-care (01) ==
PROVIDERS: Emergency Provider Emergency Medicine; PCP Internal Medicine
DX: M54.50 Low back pain, unspecified (principal); F17.210 Nicotine dependence, cigarettes, uncomplicated; Z79.899 Other long term (current) drug therapy
CPT/HCPCS: 81003; 96372; 99283; 99284; J1885

== ENCOUNTER 2022-11-30 13:38 | Emergency (ER) | payer OTHER, SELFPAY ==
[2022-11-30 14:07] VITALS: BP 114/76; PULSE 70; RESP 19; TEMP 36.6; O2SAT 98; BMI 22.7
--- NOTE | 2022-11-30 14:10 | ED_ITS ---
HPI - Neck Pain/Injury General Chief Complaint: Neck Pain/Injury Stated Complaint: pain in neck Time Seen by Provider: 11/30/22 14:10 Source: patient Mode of arrival: ambulatory Limitations: no limitations History of Present Illness HPI Narrative: 57 yo female presents to the ER for evaluation of right sided neck pain that started last night and was worse when she woke up this morning. She states it feels sore and tight. It is worse with rotation of the head to either side. No known injury. No fever, chills, weakness, numbness or tingling into the extremities. She took 600 mg ibuprofen at noon with some improvement. complaint: neck pain Onset (ago): hour(s) Place: home Radiation: right lateral Severity: moderate Quality: aching and spasming Duration: constant and progressively worsening Relieving factors: immobilization Exacerbating factors: movement of neck Associated symptoms: none Treatments prior to arrival: ibuprofen Related Data Home Medications Medication Instructions Recorded Confirmed cholecalciferol (vitamin D3) 25 25 mcg PO DAILY 12/08/20 02/17/21 mcg (1,000 unit) capsule Previous Rx's Medication Instructions Recorded omeprazole 20 mg capsule,delayed 20 mg PO DAILY #90 caps 03/03/21 release albuterol sulfate 90 mcg/actuation 2 puff inhalation Q4-6H PRN 08/25/22 aerosol inhaler shortness of breath or wheezing #8.5 grams azithromycin 250 mg tablet See Rx Instructions PO .COMPLEX #6 08/25/22 tabs benzonatate 100 mg capsule 100 mg PO TID PRN cough 5 days #15 08/25/22 caps cyclobenzaprine 5 mg tablet 5 mg PO TID PRN muscle spasm 7 10/23/22 days #21 tabs prednisone 20 mg tablet 20 mg PO DAILY 7 days #7 tabs 10/23/22 cyclobenzaprine 10 mg tablet 10 mg PO TID PRN muscle spasm #10 11/30/22 tabs lidocaine 5 % topical patch 1 patch topical DAILY #15 ea 11/30/22 Allergies Allergy/AdvReac Type Severity Reaction Status Date / Time No Known Allergies Allergy Verified 11/30/22 14:07 Review of Systems Review of Systems: Yes all other systems are reviewed and are negative PMFSH Past Medical History Medical History Blurry vision, bilateral GERD (gastroesophageal reflux disease) Hypovitaminosis D Mild asthma Smoker Varicose veins of both lower extremities Surgical History History of tubal ligation Hx laparoscopic cholecystectomy Family History Family History Mother No problems noted. Father Cancer Social History Social History Housing: House Alcohol intake: current Alcohol intake frequency: holidays/special occasions only Alcohol type: beer Patient Tobacco Use Status: Current everyday Tobacco user Tobacco use type: Cigarette Cigarettes Per Day: 8 e-Cigarette/Vaping Use: Never Used Second Hand Smoke Exposure: No service: No Current occupational status: employed Current occupational exposures/hazards: No Physical Exam Vital Signs: Vital Signs: Last Vital Signs Temp 98 F 11/30/22 14:07 Pulse 70 11/30/22 14:07 Resp 19 11/30/22 14:07 BP 114/76 11/30/22 14:07 Pulse Ox 98 11/30/22 14:07 O2 Del Method Room Air 11/30/22 14:07 BMI result Body Mass Index 22.7 Appearance: Alert. Oriented X3. No acute distress. Head: normocephalic, atraumatic. Eyes: Pupils equal, round and reactive to light. ENT: Pharynx normal. No tonsillar swelling or exudate. Neck: Normal inspection. Neck supple. No LAD, soft tissue tenderness and spasm of the right lateral soft tissues. normal ROM with pain with lateral rotation. no nuchal rigidity CVS: Normal heart rate and rhythm. Pulses normal. Respiratory: No respiratory distress. Skin: Skin warm and dry. Normal skin color. Normal skin turgor. No rashes. Extremities: No lower extremity edema. No joint swelling. Neuro/psych: Oriented X 3. strength is equal and symmetrical in UE. CN II-XII intact. Normal speech and cognition. Medical Decision Making Medical Decision Making MDM Narrative: 57 yo female presenting to the ER for evaluation of nontraumatic right sided neck pain since last night. exam and clinical presentation c/w muscle strain and spasm with tenderness on exam. low suspicion for meningitis without headache or fevers. no trauma to warrant imaging today. will start muscle relaxer and lidoderm patches. stable for d/c home Differential Diagnosis Differential Diagnoses: The differential diagnosis associated with the presentation includes cervical muscle strain, torticollis, cervical radiculopathy External Record Review External record reviewed: Prior outpatient labs and Prior outpatient radiology Prescription Management I considered prescription management with: Pain Medication Critical Care Time Critical Care Time Critical Care Time: No Discharge Plan Discharge Clinical Impression: Cervical muscle strain Patient Disposition: Home, Self-Care Instructions: Cervical Strain (DC) Additional Instructions: Your pain is most likely due to muscle strain and spasm. Work on gentle range of motion of the neck and massage the area. Use ice several times per day for 20 minutes at a time for the next 48 hours and then change to heat. Take medications as prescribed to help with pain and discomfort. Follow up with your Primary Care Doctor this week. If you develop new or worsening symptoms call 911 or come back to the ER for further evaluation. Lo m?s probable es que webb dolor se deba a tensi?n y espasmos musculares. Trabaje en el rango de movimiento suave del bibi y masajee el ?gin. Use hielo varias veces al d?a nargis 20 minutos a la vez nargis las pr?ximas 48 horas y luego cambie a calor. [place] los medicamentos seg?n lo prescrito para ayudar con el dolor y la incomodidad. Carla un seguimiento con webb m?dico de atenci?n primaria esta semana. Si desarrolla s?ntomas nuevos o que empeoran, llame al 911 o regrese a la mya de emergencias para chaparrita evaluaci?n adicional. Prescriptions: New lidocaine 5 % adhesive patch,medicated 1 patch topical DAILY Qty: 15 0RF Rx Instructions: leave on most painful area for up to 12 hrs cyclobenzaprine 10 mg tablet 10 mg PO TID PRN (Reason: muscle spasm) Qty: 10 0RF No Action omeprazole 20 mg capsule,delayed release(DR/EC) 20 mg PO DAILY Qty: 90 0RF cyclobenzaprine 5 mg tablet 5 mg PO TID PRN (Reason: muscle spasm) 7 Days Qty: 21 0RF prednisone 20 mg tablet 20 mg PO DAILY 7 Days Qty: 7 0RF albuterol sulfate 90 mcg/actuation HFA aerosol inhaler 2 puff inhalation Q4-6H PRN (Reason: shortness of breath or wheezing) Qty: 8.5 0RF azithromycin 250 mg tablet See Rx Instructions .ROUTE .COMPLEX Qty: 6 0RF Rx Instructions: For 250 mg dose pack: take 500 mg today (day 1), then 250 mg for 4 days (days 2-5) benzonatate 100 mg capsule 100 mg PO TID PRN (Reason: cough) 5 Days Qty: 15 0RF cholecalciferol (vitamin D3) 25 mcg (1,000 unit) capsule 25 mcg PO DAILY Stand Alone Forms: Work/School Release
== END 2022-11-30 14:23 | disposition home or self-care (01) ==
LOC: HO.ED 14:18
PROVIDERS: Emergency Provider Emergency Medicine; PCP Internal Medicine
DX: S16.1XXA Strain of muscle, fascia and tendon at neck level, initial encounter (principal); X58.XXXA Exposure to other specified factors, initial encounter; F17.210 Nicotine dependence, cigarettes, uncomplicated; Y93.9 Activity, unspecified; Y92.9 Unspecified place or not applicable; Y99.9 Unspecified external cause status
CPT/HCPCS: 99282; 99283

== ENCOUNTER 2023-02-10 07:50 | Outpatient (AMB) | payer OTHER, SELFPAY ==
[2023-02-10 07:52] VITALS: BP 102/58; PULSE 59; O2SAT 96; BMI 23.4
--- NOTE | 2023-02-10 07:52 | MHC.PC.OV ---
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 Required: Yes Imaging Center Manager Name: [id number] Information Interpreted: non-clinical & clinical Allergies No Known Allergies Allergy (Verified 02/10/23 08:06) Medication List - Last Reconciled 02/10/23 by KWAME Berman albuterol sulfate 90 mcg/actuation 2 puffs inhalation Q4-6H PRN cholecalciferol (vitamin D3) 25 mcg PO DAILY cyclobenzaprine 10 mg PO TID PRN lidocaine 5% 1 patch topical DAILY Tobacco use date assessed: 02/10/23 Dental Screening Dental Screen Date: 02/10/23 Did you have a dental visit in the last 12 months?: Yes Did you have a dental problem in the last 6 months where you did not have access to dental care?: No Was dental information given to patient?: Patient has dentist HPI HPI Comments History of Present Illness Details 57-year-old female new patient presents today to establish care. Past medical history significant for GERD, asthma, low vitamin-D and smoker. Patient reports she continues to smoke 6 cigarettes a day. Previous patient of has not been seen in 2 years. Prescription sent. Patient requesting referral to establish care with OBGYN for cervical cancer screening. Patient reports she has had a colonoscopy in the past states he was done at [facility] unsure if she is due for repeat colonoscopy, will obtain records from [facility]. Complete fasting lab work ordered. Patient requesting refill on her albuterol inhaler as well as albuterol nebulizer treatments. Patient requesting a prescription for ibuprofen to take as needed for headaches. Rx sent. OBGYN: Referral entered. [facility] Medical History Blurry vision, bilateral GERD (gastroesophageal reflux disease) Hypovitaminosis D Mild asthma Smoker Varicose veins of both lower extremities Surgical History History of tubal ligation Hx laparoscopic cholecystectomy Family History Mother No problems noted. Father Cancer Social History (Updated 02/10/23 @ 08:11 by KWAME Berman) Housing: House Alcohol intake: current Alcohol intake frequency: holidays/special occasions only Alcohol type: beer Patient Tobacco Use Status: Current everyday Tobacco user Tobacco use type: Cigarette Cigarettes Per Day: 7 e-Cigarette/Vaping Use: Never Used Second Hand Smoke Exposure: No service: No Current occupational status: employed Current occupational exposures/hazards: No Cognitive needs: No Hearing needs: No Vision needs: Yes Questionnaire PHQ-9 Over the last 2 weeks, how often have you been bothered by any of the following problems? 1. Little interest or pleasure in doing things: not at all 2. Feeling down, depressed, or hopeless: not at all 3. Trouble falling or staying asleep, or sleeping too much: not at all 4. Feeling tired or having little energy: not at all 5. Poor appetite or overeating: not at all 6. Feeling bad about yourself - or that you are a failure or have let yourself or your family down: not at all 7. Trouble concentrating on things, such as reading the newspaper or watching television: not at all 8. Moving or speaking so slowly that other people could have noticed. Or the opposite - being so fidgety or restless that you have been moving around a lot more than usual: not at all 9. Thoughts that you would be better off or of hurting yourself in some way: not at all Total score: 0 Depression Screening Interpretation: Negative Depression Screening Done: Yes Source: Developed by Drs. Darrell Esparza, Jazmine Spencer, Chaparro Harris and colleagues, with an educational bernie from [employer]. Thrive Questionnaire Date Thrive assessed: 02/10/23 I am a: Patient What is your living situation today?: I have a steady place to live Within the past 12 months, did the food you bought not last and you didn't have the money to get more?: Never true Within the past 12 months, did you worry whether your food would run out before you got money to buy more?: Never true Do you have trouble paying for medicines?: No Do you have trouble getting transportation to medical appointments?: No Do you have trouble paying your heating and electricity bill?: No Do you have trouble taking care of your child, family member or friend?: No Do you have trouble with day-to-day activities such as bathing, preparing meals, shopping, managing finances, etc.?: No Are you currently unemployed and looking for a job?: No Are you interested in more education?: No Currently or been in a relationship where the following occur: no concerns reported AUDIT C Alcohol Use Questionnaire (AUDIT-C) 1. How often do you have a drink containing alcohol?: Monthly or less 2. How many drinks containing alcohol do you have on a typical day when you are drinking?: 1 or 2 3. How often do you have six or more drinks on one occasion?: Never Total Score: 1 ALLY-7 AMB Questionnaire ALLY-7 Date ALLY - 7 assessed: 02/10/23 Feeling nervous, anxious, or on edge: 0 = Not at all Not being able to stop or control worryin = Not at all Worrying too much about different things: 0 = Not at all Trouble relaxin = Not at all Being so restless that it is hard to sit still: 0 = Not at all Becoming easily annoyed or irritable: 0 = Not at all Feeling afraid as if something awful might happen: 0 = Not at all Total ALLY-7 score (0-4 normal; 5-9 mild; 10-14 moderate; 15-21 severe): 0 Source: Developed by Drs. Darrell Esparza, Jazmine Spencer, Chaparro Harris and colleagues, with an educational bernie from [employer]. ALLY-7 Assessment Billing ALLY-7 Assessment Tool: ALLY-7 Assessment 44199 Review of Systems Const Denies chills, Denies fatigue, Denies fever(s) and Denies poor appetite Eyes Denies no additional complaints ENT Reports Normal hearing present Card Denies chest pain, Denies syncope, Denies rapid heart rate and Denies dyspnea Resp Denies cough and Denies dyspnea GI Denies change in stool character, Denies constipation, Denies diarrhea, Denies nausea and Denies vomiting Denies urinary frequency, Denies dysuria and Denies urinary urgency Neuro Reports Normal hearing present, Denies confusion and Denies syncope Psych Denies confusion Endo Denies fatigue Physical exam (Primary Care) Vital Signs: Last Vital Signs Pulse 59 02/10/23 07:52 BP 102/58 L 02/10/23 07:52 Pulse Ox 96 02/10/23 07:52 Oxygen Delivery Method Room Air 02/10/23 07:52 BMI result Body Mass Index 23.4 Tobacco/Smoking Status: Tobacco use Status Tobacco use date assessed 02/10/23 02/10/23 07:59 Patient Tobacco Use Status Current everyday Tobacco 02/10/23 08:11 Tobacco use type Cigarette 02/10/23 08:11 e-Cigarette/Vaping Use Never Used 02/10/23 08:11 PHQ-9: PHQ-9 Score PHQ-9: Total score 0 02/10/23 08:03 Depression Screening Interpretation: Negative Thrive Assessment: Date of Thrive Assessment Date Thrive assessed 02/10/23 02/10/23 07:59 Currently or been in a relationship where the following occur: no concerns reported Const General: No confusion Orientation/consciousness: No confusion HENMT Head: Yes normocephalic and Yes atraumatic Eyes Conjunctivae: conjunctivae normal Chest Chest palpation & inspection: normal inspection of the chest Resp Effort & Inspection: normal respiratory effort Auscultation: clear to auscultation bilaterally, no crackles, no rhonchi and no wheezes Cardio Rate: regular rate Rhythm: regular rhythm Heart sounds: S1 normal heart sound present and S2 normal heart sound present GI Inspection: Yes normal to inspection Neuro General: No confusion Cranial nerves: Yes Normal hearing present Extrem General: No edema Office Procedures Flu Questionnaire Does the patient have a severe egg allergy?: No Does the patient have severe life threatening allergies?: No Does the patient have a fever or illness today?: No Has the patient ever had Guillain-Hamel Syndrome?: No Has the patient ever had any past reaction to a flu shot?: No Immunizations flu vacc [id number] 6mos up(PF) 60 mcg(15 mcgx4)/0.5 mL IM syringe Performing Provider: KWAME Berman [facility] Documented (not given) by: Barbara Cr CMA on 02/10/23 08:00 Reason Not Given: Patient Refused Assessment and Plan Assessment & Plan (1) Hypovitaminosis D: Code(s): E55.9 - Vitamin D deficiency, unspecified Plan: Vitamin-D level ordered (2) Mild asthma: Code(s): J45.909 - Unspecified asthma, uncomplicated Qualifiers: Asthma persistence: persistent Asthma complication type: uncomplicated Qualified Code(s): J45.30 - Mild persistent asthma, uncomplicated Plan: Refill sent on albuterol (3) Right sided sciatica: Code(s): M54.31 - Sciatica, right side Plan: Offered referral to physical therapy patient reported right-sided sciatica pain, patient declined this time. Offered refill on Lidoderm patches patient declined refill. (4) Smoker: Code(s): F17.200 - Nicotine dependence, unspecified, uncomplicated Plan: Strongly advised to stop. Plan Follow-up in 4 months for complete physical exam. Orders: Orders Influenza [id number] Immunization Today Z23 - Encounter for immunization Complete Blood Count Auto Diff Today Z13.0 - Encounter for screening for diseases of the blood and blood-forming organs and certain disorders involving the immune mechanism Lipid Panel Today Z13.220 - Encounter for screening for lipoid disorders Comprehensive [place]. Panel Fast Today Z13.0 - Encounter for screening for diseases of the blood and blood-forming organs and certain disorders involving the immune mechanism TSH reflex Free T4 Today Z13.29 - Encounter for screening for other suspected endocrine disorder UA CC w/rflx Micro + Cult Today R30.0 - Dysuria Vitamin D 25-OH Total Today E55.9 - Vitamin D deficiency, unspecified Referrals [employer] Referral Z12.4 - Encounter for screening for malignant neoplasm of cervix Medications: New ibuprofen 600 mg PO Q8H PRN 20 tabs 0RF pain albuterol sulfate 0.63 mg (3 mL) inhalation QID PRN 90 mL 0RF shortness of breath or wheezing J45.909 - Unspecified asthma, uncomplicated Refilled albuterol sulfate 90 mcg/actuation 2 puffs inhalation Q4-6H PRN 8.5 grams 0RF shortness of breath or wheezing Coding Level of Care Code New Pt Level 4 (08935) Diagnoses Hypovitaminosis D E55.9 Mild persistent asthma without complication J45.30 Asthma persistence: persistent Asthma complication type: uncomplicated Right sided sciatica M54.31 Smoker F17.200 Additional Codes ALLY-7 Assessment Billing - ALLY-7 Assessment Tool: ALLY-7 Assessment 41601 ([id number]) PHQ-9 - 68706 - PHQ-9 Billing: ([id number])
== END 2023-02-10 08:33 | disposition home or self-care (01) ==
PROVIDERS: PCP Internal Medicine; Visit Provider Nurse Practitioner Family
DX: E55.9 Vitamin D deficiency, unspecified (principal); J45.30 Mild persistent asthma, uncomplicated; M54.31 Sciatica, right side; F17.210 Nicotine dependence, cigarettes, uncomplicated
CPT/HCPCS: 99214

== ENCOUNTER 2023-05-19 13:05 | Outpatient (REF) | payer OTHER, SELFPAY ==
[2023-05-24 21:20] LABS: HPV mRNA E6/E7 rflx Not Detected (Not Detected)
== END 2023-05-19 13:06 | disposition home or self-care (01) ==
LOC: HO.LNP 13:05
PROVIDERS: PCP Internal Medicine; Visit Provider Advanced Practice Midwife
DX: Z01.419 Encounter for gynecological examination (general) (routine) without abnormal findings (principal); N95.1 Menopausal and female climacteric states; Z98.51 Tubal ligation status
CPT/HCPCS: 87624; 88142; 99386

== ENCOUNTER 2023-05-19 13:05 | Outpatient (AMB) | payer OTHER, SELFPAY ==
--- OUTSIDE RECORDS SUMMARY | 2023-05-19 13:06 | XMS_ITS | Continuity of Care Document ---
Author Name Unknown Organization [facility] Address [address] [place] [id number]- Care Team Providers Care Federal Aid Coordinator Name Role Phone Donald Diamond MD Primary Care Physician [place] [facility] [place] 04/28/22 - 04/28/[address] [address]- Encounter Diagnosis Fungal infection(Final) - 04/28/22 Discharge Disposition: A-D/C Home Attending Physician: Reyna Silverio MD Admitting Physician: Reyna Silverio MD Referring Physician: Not on Staff, Referring MD Allergies, Adverse Reactions, Alerts No Known Allergies Medications Cephalexin Capsule By Mouth, 0, 0, 08/30/05 2:01:01, Current med (Hx), Constant Indicator Start Date: 08/30/05 Status: Ordered Econazole Nitrate 1% topical cream 1 application, Topically, 2 times a day, # 85 Gm, 0 Refills, Maintenance, 04/28/22 15:30:00 EST, Cream, [id number], Partial fill upon patient request if the prescription is for a schedule II opioid drug., 1 application Topically 2 times a day,... Start Date: 04/28/22 Status: Ordered Percocet-10/325 1, tablet, By Mouth, Every 6 hours, Scheduled / PRN, 0, 0, 08/30/05 1:59:03, as needed for pain, Print CARMELO Number, [id number] Start Date: 08/30/05 Status: Ordered Vital Signs Most recent to oldest [Reference Range]: 1 2 3 Height 155 cm (04/28/22 10:33 AM) Weight 56.9 kg (04/28/22 10:33 AM) Oxygen Saturation [94-100 %] 100 % (04/28/22 4:37 PM) 100 % (04/28/22 1:29 PM) 99 % (04/28/22 12:17 PM) Pulse Rate [55-90 bpm] 60 bpm (04/28/22 4:37 PM) 67 bpm (04/28/22 1:29 PM) 50 bpm *L* (04/28/22 12:17 PM) Body Mass Index [18.5-24.99 kg/m2] 23.68 kg/m2 (04/28/22 10:33 AM) Blood Pressure [90-138/55-84 mm Hg] 123/80mm Hg (04/28/22 4:37 PM) 126/71mm Hg (04/28/22 1:29 PM) 107/76mm Hg (04/28/22 12:17 PM) Respiratory Rate [16-30 br/min] 16 br/min (04/28/22 4:37 PM) 16 br/min (04/28/22 1:29 PM) 16 br/min (04/28/22 12:17 PM) Temperature [96.8-100.4 DegF] 98.1 DegF (04/28/22 1:29 PM) 98.0 DegF (04/28/22 12:17 PM) 98.0 DegF (04/28/22 10:33 AM) Mode of Delivery (Oxygen) Room air (04/28/22 4:37 PM) Room air (04/28/22 1:29 PM) Room air (04/28/22 12:17 PM) Blood pressure sites Arm, left (04/28/22 4:37 PM) Arm, left (04/28/22 1:29 PM) Arm, right (04/28/22 12:17 PM) Temperature Route Oral (04/28/22 1:29 PM) Oral (04/28/22 12:17 PM) Oral (04/28/22 10:33 AM) Dry Weight 56.9 kg (04/28/22 10:33 AM) Weight Obtained Via Standing scale (04/28/22 10:33 AM) Dry Weight Obtained Via Standing scale (04/28/22 10:33 AM) Note * Ana Colby DO: PERFORM Event Display: Patient Education Leaflets Authored Date: [facility] [place] If you need a Doctor or Clinic ?? 34 If You Need a Doctor or Clinic ?? Call [facility] PCP Assignment Line to help you find a doctor:?? [phone] ?? Clinics in [place], [place] For a full list of clinics:? [email or web address] ?? [facility]? [address] [phone] [facility] Internal [facility] Clinic?[address]?[phone] [facility]?[address][phone] [facility]?[address][phone] [facility]?[address] [phone] [facility]?[address][phone] [facility]?[address][phone] [facility]?[address] [phone] [facility]? [address][phone] [facility]?[address][phone] [facility]?[address][phone] [facility]?[address][phone] [facility]?[address][phone] [facility]? [address][phone] [facility]?[address][phone] ? * Ana Colby DO: PERFORM Event Display: Patient Education Leaflets Authored Date: [id number] Fungal Skin Infection (Tinea) ?? [id number] Infecci??n cut??miguel causada por hongos (ti??a) Chaparrita infecci??n por hongos se produce por un exceso de hongos en el cuerpo. Normalmente, la piel tiene hongos en cantidades amy??as que no causan da??o. Geovany, cuando esas cantidades aumentan, causanuna infecci??n. Virden se conoce gaurang ti??a. Las infecciones por hongos son comunes y no suelen ser graves. La infecci??n suele comenzar gaurang chaparrita sandrita amy??a de color cardoso y plana del norberto??o de un ch??mary. Puede que la piel est?? seca y escamosa. Scott vez tenga picaz??n en la lg. A medida que el hongo crece, forma un c??rculo de color martinez. Debido a webb apariencia, esta infecci??n de la piel por hongos suele llamarse anillo de gusano. Geovany no la causa un gusano. Las infecciones en la piel causadas por hongos pueden ocurrir en muchas partes del cuerpo. Pueden aparecer en la ramos, el pecho, los brazos, los gl??teos o las piernas. Cuando se producen en los pies, las infecciones por hongos sedenominan pie de atleta. Provocan llagas que pican, y que en ocasiones tambi??n duelen, entre los dedos de los pies y en la planta y los lados de los pies. Cuando aparece en la travis, el sarpullido se llama ti??a inguinal. Las personas que tienen un sistema inmunitario debilitado son m??s propensas a tener chaparrita infecci??npor hongos. Por ejemplo, las personas con diabetes, VIH o c??ncer. En tales casos, la infecci??n por hongos puede propagarse y causar enfermedades graves. Las infecciones por hongos tambi??n son m??scomunes en las personas con sobrepeso. En la mayor??a de los casos, el tratamiento se hace con chaparrita crema o pomada antimic??jeremías. Si la infecci??n aparece en el cuero cabelludo, deber?? derek medicamentos por v??a oral. Con el objetivo de confirmar el diagn??stico de infecci??n por hongos, el proveedor de atenci??n m??dica puede hacer unraspado en la piel para analizarlo en el laboratorio. Las infecciones carol??delisa comunes se tratan con cremas que se aplican sobre la piel o con medicamentos por v??a oral. Cuidados en el hogar Siga todas las instrucciones para el uso de cremas o pomadas antimic??delisa sobre la piel. Cuidados generales: ??? Si le recetaron un medicamento oral, kaila la informaci??n para el paciente en el prospecto. Hable con el proveedor de atenci??n m??dica acerca de los riesgos y los efectos secundarios. ??? Deje que la piel se seque completamente despu??s de ba??arse. S??quese cuidadosamente los pies y entre los dedos de los pies. ??? V??stase con ropa holgada de algod??n. ??? No rasque las zonas afectadas. Eso puede retrasar webb recuperaci??n y injection molding supervisor la infecci??n. Tambi??n puede causarle chaparrita infecci??n por bacterias. ??? Mantenga la piel limpia, geovany no la lave demasiado. La piel puede irritarse si la lava mucho. ??? Tenga en cuenta que puede derek alrededor de chaparrita semana para que el hongo comience a desaparecer. Puede derek entre dos y cuatro semanas para desaparecer por completo. Para evitar que reaparezca, use el medicamento hasta que el sarpullido haya desaparecido por completo. ?? Atenci??n de seguimiento Programe chaparrita visita de seguimiento con webb proveedor de atenci??n m??dica si el sarpullido no mejoraal cabo de harika d??as de tratamiento. Tambi??n, si el sarpullido se extiende a otras partes del cuerpo. ?? Cu??ndo buscar atenci??n m??dica Llame de inmediato a webb proveedor de atenci??n m??dica si algo de lo siguiente ocurre: ??? Fiebre de??100.4 ??F (38 ??C) o superior, o gaurang le indique webb proveedor de atenci??n m??dica ??? Enrojecimiento o inflamaci??n que empeoran ??? Dolor que empeora ??? L??quido maloliente que sale de la piel ?? Last Reviewed Date: 2021 ?? [id number] [employer]. Todos los derechos reservados. Esta informaci??n no pretende sustituir la atenci??n m??dica profesional. S??lo webb m??dico puede diagnosticar y tratar un problema de chino. ?? Patient Care team information Care Team Personnel Name: Donald Diamond MD Position: [facility] Physician (General Medicine) Member Role: PCP Address: Address: [address], [place] [address] Name: Mera Hsu Position: [facility] ED RN W/OE and Tasks Member Role: Patient Care Provider Name: Ashish Araya Position: [facility] ED TA [facility] Member Role: Photographic Processor Name: Ajay Magaña RN Position: [facility] ED RN W/OE and Tasks Member Role: Patient Care Provider Name: Reyna Silverio MD Position: [facility] ED Medicine MD Member Role: Admitting Physician Address: Address: [address] [place] [address]- Name: Ana Colby DO Position: [facility] Resident Member Role: ED Resident Address: Address: [address] [place] [address]- Care Team Related Persons Name: EFRAÍN GUTIERREZ Address: home [address] [place] [address]
[2023-05-19 13:07] VITALS: BP 104/56; BMI 23.2
--- NOTE | 2023-05-19 13:07 | MHC.OFFVIS ---
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 Ref Community Health Advocate Required: Yes Community Health Advocate Language: Grenadian Information Interpreted: non-clinical & clinical Leather Toggler: Leather Toggler Present (Marisol) Allergies No Known Allergies Allergy (Verified 05/19/23 13:15) Medication List - Last Reconciled 05/19/23 by Marie Sanchez CNM albuterol sulfate 90 mcg/actuation 2 puffs inhalation Q4-6H PRN albuterol sulfate 0.63 mg (3 mL) inhalation QID PRN cholecalciferol (vitamin D3) 25 mcg PO DAILY cyclobenzaprine 10 mg PO TID PRN erythromycin ophthalmic (eye) ibuprofen 600 mg PO Q8H PRN moxifloxacin 0.5% drps ophthalmic (eye) Is last menstrual period known: No Post menopausal: Yes HPI 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 She had 3 children 2 in [place] and 1 and [facility]. They are 33 years old to 16 years old. She is sexually active with her she has no worries about STDs and in fact she declines testing for any kind infection. She does not know when she had her last Pap smear and she has not had a mammogram in a couple of years. She expressed confusion to the [place] on arrival as to what was the purpose of this visit and was confusing it with a colonoscopy with she is a very afraid of and does not want to have. [facility] Medical History (Updated 05/19/23 @ 13:51 by Marie Sanchez CNM) Mild asthma GERD (gastroesophageal reflux disease) Varicose veins of both lower extremities Blurry vision, bilateral Smoker Hypovitaminosis D Surgical History (Updated 05/19/23 @ 13:16 by SHANE Lora) Hx of section History of tubal ligation Hx laparoscopic cholecystectomy Family History Mother No problems noted. Father Cancer Social History Housing: House Alcohol intake: current Alcohol intake frequency: holidays/special occasions only Alcohol type: beer Patient Tobacco Use Status: Current everyday Tobacco user Tobacco use type: Cigarette Cigarettes Per Day: 7 e-Cigarette/Vaping Use: Never Used Second Hand Smoke Exposure: No service: No Current occupational status: employed Current occupational exposures/hazards: No Cognitive needs: No Hearing needs: No Vision needs: Yes Female Reproductive History Menstrual Age of Menarche: 11 control method: other (tubal ligation) Total pregnancies: 4 Full term: 3 Number of Living Children: 3 Date of Mammogram: 03/12/21 Physical Exam Vital Signs: Last Vital Signs BP 104/56 L 05/19/23 13:07 BMI result Body Mass Index 23.2 Const General: healthy appearing, comfortable, no acute distress, well developed and alert Nutritional Appearance: average body habitus Orientation/consciousness: patient oriented x3 Limitations: no limitations HEENT Head: Yes normocephalic Neck Neck: Yes normal visual inspection Chest Chest palpation & inspection: normal inspection of the chest Breast/axilla inspection: normal inspection of the breasts and normal inspection of the axillae Breast/axilla palpation: normal palpation of the breasts and normal palpation of the axillae Resp Effort & Inspection: normal respiratory effort GI Inspection: Yes normal to inspection, No Abdominal wall edema and No distended Palpation (GI): Soft to palpation and nontender Other: Postmenopausal changes noted. Vagina pink moist slightly atrophic mucosa cervix appears nulliparous pink smooth small uterus small anteverted mobile nontender adnexa nontender very good muscle tone. General: Yes bladder normal to palpation External Female Exam: normal external appearance and normal appearance of the urethra Speculum Exam - Vagina: normal appearance of the vagina, normal palpation and normal vaginal discharge Speculum Exam - Cervix: normal appearance of the cervix, normal palpation and nontender Bimanual exam- vagina & uterus: normal bimanual exam, normal palpation, uterine size normal, bladder normal to palpation, consistency normal, normal palpation, uterine mobility normal, uterine shape normal, No Cervical tenderness present, non-tender and no cervical motion tenderness Bimanual Exam- Adnexa, other: normal adnexae, no masses, normal and No adnexal tenderness Neuro General: patient oriented x3 Assessment & Plan Assessment & Plan (1) Cervical cancer screening: Code(s): Z12.4 - Encounter for screening for malignant neoplasm of cervix (2) Breast cancer screening: Code(s): Z12.39 - Encounter for other screening for malignant neoplasm of breast (3) Well woman exam with routine gynecological exam: Code(s): Z01.419 - Encounter for gynecological examination (general) (routine) without abnormal findings (4) Perimenopause: Code(s): N95.1 - Menopausal and female climacteric states Plan I did review normal intervals of for screening. -----Discussed in this visit the following: healthy balanced diet, regular and consistent exercise, getting recommended health screens, doing the best she can for her particular health concerns, kegel exercises, pap smear screening and followup recommendations, mammography screening and SBE, normal changes in cycles in her life stage--- . 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 She declined any testing for STIs I told her she can get the results on the portal but we would send her a letter for the results of the Pap smear I am ordering a mammogram for her as it has not ordered. Reviewed that she is in general trying very hard to take care of herself and is eating well and not overweight and clearly exercises well for her health and she walks everywhere. Orders: Orders Pap Smear Today Z12.4 - Encounter for screening for malignant neoplasm of cervix MM tomosynthesis screening BI Today Z01.419 - Encounter for gynecological examination (general) (routine) without abnormal findings, Z12.31 - Encounter for screening mammogram for malignant neoplasm of breast, Z12.39 - Encounter for other screening for malignant neoplasm of breast, Z12.4 - Encounter for screening for malignant neoplasm of cervix Coding Level of Care Code New Pt Prev Care 40-64y([id number]) Diagnoses Cervical cancer screening Z12.4 Breast cancer screening Z12.39 Well woman exam with routine gynecological exam Z01.419 Perimenopause N95.1
== END 2023-05-19 14:05 | disposition home or self-care (01) ==
LOC: HO.HWSM 13:05
PROVIDERS: PCP Internal Medicine; Visit Provider Advanced Practice Midwife
DX: Z01.419 Encounter for gynecological examination (general) (routine) without abnormal findings (principal); N95.1 Menopausal and female climacteric states
CPT/HCPCS: 99386

== ENCOUNTER 2023-06-09 08:13 | Outpatient (REF) | payer OTHER, SELFPAY ==
[2023-06-09 08:28] LABS: MANUAL DIFF FLAG NO
[2023-06-09 09:00] LABS: Basophils Absolute Auto 0.1 X10*3/uL (0.0-0.2); Basophils Percent Auto 0.7 % (0-2); Eosinophils Absolute Auto 0.2 X10*3/uL (0.0-0.4); Eosinophils Percent Auto 3.3 % (0-4); Hematocrit 45.4 % (37.0-47.0); Hemoglobin 14.7 g/dl (12.0-16.0); Imm Gran Abs Auto 0.02 X10*3/uL (0.00-0.03); Imm Gran Pct Auto 0.3 % (0.0-0.4); Lymphocytes Absolute Auto 1.9 X10*3/uL (1.2-4.9); Lymphocytes Percent Auto 27.5 % (20-40); Mean Corpuscular HGB Conc 32.4 g/dl (31.0-35.0); Mean Corpuscular Hemoglobin 28.3 pg (27.0-33.0); Mean Corpuscular Volume 87.5 fL (80.0-98.0); Mean Platelet Volume 9.3 fL (9.4-12.3); Monocytes Absolute Auto 0.4 X10*3/uL (0.1-1.2); Monocytes Percent Auto 5.6 % (2-11); Neutrophils Absolute Auto 4.4 x10*3/uL (2.0-8.3); Neutrophils Percent Auto 62.6 % (45-73); Platelet Count 235 X10*3/uL (160-400); Red Blood Count 5.19 X10*6/uL (4.20-5.50); Red Cell Distribution Width 14.4 % (11.0-16.0)
[2023-06-09 09:07] LABS: Appearance Urine Clear; Color Urine Yellow; Glucose Urine UA Negative (Negative); Leukocyte Esterase Urine Negative (Negative); Nitrite Urine Negative (Negative); PH 5.5 (5.0-9.0); Specific Gravity - Urine 1.015 (1.005-1.025); UMIC TRIGGER UACC YES; Urine Blood Trace (Negative); Urine Ketones Negative (Negative); Urine Protein Negative (Neg-Trace)
[2023-06-09 09:23] LABS: Bacteria Urine None Seen (None Seen); Hyaline Casts Urine 0-2 /LPF (0-2); RBC Urine 0-2 /HPF (0-2); WBC Urine 0-5 /HPF (0-5)
[2023-06-09 09:43] LABS: Alanine Aminotransferase 13 U/L (0-31); Albumin Level 4.2 g/dL (3.5-5.0); Alkaline Phosphatase 112 U/L (39-117); Anion Gap 11 (12-20); Aspartate Amino Transferase 14 U/L (5-31); Bilirubin Total 0.4 mg/dL (0.0-1.0); Blood Urea Nitrogen 14 mg/dL (9-16); Calcium 9.8 mg/dL (8.4-10.2); Carbon Dioxide 30 mmol/L (22-29); Chloride 105 mmol/L (96-108); Cholesterol 246 mg/dL (<200); Estimated Glomerular Filt Rate > 60; Glucose Fasting 101 mg/dL (60-99); HDL Cholesterol 47 mg/dL (>40); LDL Cholesterol Calculated 175 mg/dL (<100); Sodium 142 mmol/L (135-145); Total Protein 6.7 g/dL (6.5-8.0); Triglycerides 124 mg/dL (<150)
[2023-06-09 10:05] LABS: TSH reflex Free T4 0.78 uIU/mL (0.32-4.0); Vitamin D 25-OH Total 20.1 ng/mL (>30)
== END 2023-06-09 08:14 | disposition home or self-care (01) ==
LOC: HO.LAB 08:13
PROVIDERS: Visit Provider Nurse Practitioner Family
DX: Z13.0 Encounter for screening for diseases of the blood and blood-forming organs and certain disorders involving the immune mechanism (principal); Z13.29 Encounter for screening for other suspected endocrine disorder; Z13.220 Encounter for screening for lipoid disorders; E55.9 Vitamin D deficiency, unspecified
CPT/HCPCS: 36415; 80053; 80061; 81001; 81003; 82306; 84443; 85025

== ENCOUNTER 2023-06-13 16:15 | Outpatient (AMB) | payer OTHER, SELFPAY ==
--- NOTE | 2023-06-13 16:30 | A.OFFPC_ITS ---
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 Accompanied by: Self / Same As Patient Allergies No Known Allergies Allergy (Verified 06/13/23 16:48) Medication List - Last Reconciled 06/13/23 by Elizabeth Rodgers MD albuterol sulfate 90 mcg/actuation 2 puffs inhalation Q4-6H PRN albuterol sulfate 0.63 mg (3 mL) inhalation QID PRN cholecalciferol (vitamin D3) 25 mcg PO DAILY ibuprofen 600 mg PO Q8H PRN Tobacco use date assessed: 06/13/23 Dental Screening Dental Screen Date: 06/13/23 Did you have a dental visit in the last 12 months?: No Did you have a dental problem in the last 6 months where you did not have access to dental care?: No Was dental information given to patient?: Patient has dentist HPI HPI Comments History of Present Illness Details This is a 57-year-old female that comes for her physical exam. Has a mammogram scheduled for this month. Last Pap smear was last month. As per patient had a colonoscopy over 5 years ago at [place] but does not remember when and as per patient results were normal. No chest pain or shortness of breath. Labs were discussed and is aware that has elevated cholesterol but her [place] risk score is less than 6% and was advised to do a low-cholesterol diet. Vitamin-D is low. Complains of abdominal discomfort for and feeling full with less amount of food. [facility] Medical History (Updated 06/13/23 @ 18:32 by Elizabeth Rodgers MD) Mild asthma GERD (gastroesophageal reflux disease) Varicose veins of both lower extremities Blurry vision, bilateral Smoker Hypovitaminosis D Surgical History Hx of section History of tubal ligation Hx laparoscopic cholecystectomy Family History (Updated 06/13/23 @ 16:52 by Elizabeth Rodgers MD) Mother No problems noted. Father Diabetes mellitus Social History Housing: House Alcohol intake: current Alcohol intake frequency: holidays/special occasions only Alcohol type: beer Patient Tobacco Use Status: Current everyday Tobacco user Tobacco use type: Cigarette Cigarettes Per Day: 7 e-Cigarette/Vaping Use: Never Used Second Hand Smoke Exposure: No service: No Current occupational status: employed Current occupational exposures/hazards: No Cognitive needs: No Hearing needs: No Vision needs: Yes Female Reproductive History Menstrual Age of Menarche: 11 Questionnaire PHQ-9 Over the last 2 weeks, how often have you been bothered by any of the following problems? 1. Little interest or pleasure in doing things: not at all 2. Feeling down, depressed, or hopeless: not at all 3. Trouble falling or staying asleep, or sleeping too much: not at all 4. Feeling tired or having little energy: not at all 5. Poor appetite or overeating: not at all 6. Feeling bad about yourself - or that you are a failure or have let yourself or your family down: not at all 7. Trouble concentrating on things, such as reading the newspaper or watching television: not at all 8. Moving or speaking so slowly that other people could have noticed. Or the opposite - being so fidgety or restless that you have been moving around a lot more than usual: not at all 9. Thoughts that you would be better off or of hurting yourself in some way: not at all Total score: 0 Depression Screening Interpretation: Negative Depression Screening Done: Yes 82680 - PHQ-9 Billing: Yes Source: Developed by Drs. Darrell Esparza, Jazmine Spencer, Chaparro Harris and colleagues, with an educational bernie from [employer]. Thrive Questionnaire Date Thrive assessed: 06/13/23 I am a: Patient What is your living situation today?: I have a steady place to live Within the past 12 months, did the food you bought not last and you didn't have the money to get more?: Never true Within the past 12 months, did you worry whether your food would run out before you got money to buy more?: Never true Do you have trouble paying for medicines?: No Do you have trouble getting transportation to medical appointments?: No Do you have trouble paying your heating and electricity bill?: No Do you have trouble taking care of your child, family member or friend?: No Do you have trouble with day-to-day activities such as bathing, preparing meals, shopping, managing finances, etc.?: No Are you currently unemployed and looking for a job?: No Are you interested in more education?: No Please select the resources that you would like help with: None Currently or been in a relationship where the following occur: no concerns reported THRIVE Score: 0 AUDIT C Alcohol Use Questionnaire (AUDIT-C) 1. How often do you have a drink containing alcohol?: Monthly or less 2. How many drinks containing alcohol do you have on a typical day when you are drinking?: 1 or 2 3. How often do you have six or more drinks on one occasion?: Never Total Score: 1 Score Reviewed/Action Taken: Yes ALLY-7 AMB Questionnaire ALLY-7 Date ALLY - 7 assessed: 06/13/23 Feeling nervous, anxious, or on edge: 0 = Not at all Not being able to stop or control worryin = Not at all Worrying too much about different things: 0 = Not at all Trouble relaxin = Not at all Being so restless that it is hard to sit still: 0 = Not at all Becoming easily annoyed or irritable: 0 = Not at all Feeling afraid as if something awful might happen: 0 = Not at all Total ALLY-7 score (0-4 normal; 5-9 mild; 10-14 moderate; 15-21 severe): 0 Source: Developed by Drs. Darrell Esparza, Jazmine Spencer, Chaparro Harris and colleagues, with an educational bernie from [employer]. ALLY-7 Assessment Billing ALLY-7 Assessment Tool: ALLY-7 Assessment 62227 Review of Systems Const All systems reviewed & are unremarkable except as noted in HPI and below Eyes Reports no additional complaints, Denies change in vision and Denies other visual disturbances Card Denies chest pain at rest, Denies chest pain with activity, Denies edema, Denies irregular heart rhythm, Denies claudication, Denies dyspnea, Denies dyspnea on exertion, Denies orthopnea, Denies paroxysmal nocturnal dyspnea and Denies slow heart rate Resp Denies cough, Denies dyspnea and Denies dyspnea on exertion GI Denies abdominal pain, Denies change in bowel habits, Denies excessive flatus, Denies nausea and Denies vomiting Denies urinary incontinence, Denies urinary hesitancy and Denies urinary urgency Musc Denies abnormal gait, Denies atrophy, Denies deformity and Denies limited range of motion Neuro Denies abnormal gait, Denies behavioral changes, Denies confusion and Denies lack of coordination Psych Denies behavioral changes and Denies confusion Physical exam (Primary Care) Vital Signs: Last Vital Signs BP 102/68 06/13/23 16:31 BMI result Body Mass Index 23.0 Tobacco/Smoking Status: Tobacco use Status Tobacco use date assessed 06/13/23 06/13/23 16:39 Patient Tobacco Use Status Current everyday Tobacco 06/13/23 16:39 Tobacco use type Cigarette 06/13/23 16:39 e-Cigarette/Vaping Use Never Used 06/13/23 16:39 PHQ-9: PHQ-9 Score PHQ-9: Total score 0 06/13/23 16:55 Depression Screening Interpretation: Negative Thrive Assessment: Date of Thrive Assessment Date Thrive assessed 06/13/23 06/13/23 16:39 Currently or been in a relationship where the following occur: no concerns reported Const General: No confusion Orientation/consciousness: patient oriented x3 and No confusion HENMT Head: Yes normal to inspection, Yes normocephalic and Yes atraumatic Ears: external ears normal Eyes General: appearance normal, both eyes and all related structures Eyelids: Yes eyelids normal Conjunctivae: conjunctivae normal Neck Neck: Yes normal visual inspection and Yes supple Resp Effort & Inspection: normal respiratory effort Auscultation: clear to auscultation bilaterally Cardio Jugular venous distension: no JVD Rate: regular rate Rhythm: regular rhythm Heart sounds: S1 normal heart sound present and S2 normal heart sound present GI Inspection: Yes normal to inspection Palpation (GI): Soft to palpation and nontender Auscultation: normal bowel sounds Skin General skin exam: no rashes or lesions noted Neuro General: patient oriented x3, no focal motor deficits and No confusion Extrem General: Yes full ROM Psych Appearance: grossly normal Assessment and Plan Assessment & Plan (1) Physical exam: Code(s): Z00.00 - Encounter for general adult medical examination without abnormal findings Plan: Repeat in a year. Orders: Orders Liver Panel Today B35.1 - Tinea unguium NM gastric emptying study Today K31.84 - Gastroparesis Referrals Gastroenterology Referral R10.9 - Unspecified abdominal pain Dermatology Referral L60.9 - Nail disorder, unspecified Medications: New terbinafine HCl 250 mg PO DAILY 90 tabs 0RF 90 days B35.1 - Tinea unguium Refilled albuterol sulfate 0.63 mg (3 mL) inhalation QID PRN 90 mL 0RF shortness of breath or wheezing J45.909 - Unspecified asthma, uncomplicated ibuprofen 600 mg PO Q8H PRN 20 tabs 0RF pain Coding Level of Care Code Est Pt Prev Care 40-64y(58703) Diagnoses Physical exam Z00.00 Additional Codes ALLY-7 Assessment Billing - ALLY-7 Assessment Tool: ALLY-7 Assessment 16416 ([id number]) Time Spent (min) 32
[2023-06-13 16:31] VITALS: BP 102/68; BMI 23.0
== END 2023-06-13 17:08 | disposition home or self-care (01) ==
PROVIDERS: PCP Internal Medicine; Visit Provider Internal Medicine
DX: Z00.00 Encounter for general adult medical examination without abnormal findings (principal)
CPT/HCPCS: 99396

== ENCOUNTER 2023-06-30 10:30 | Outpatient (REF) | payer OTHER, SELFPAY ==
--- NOTE | ~2023-06-30 | MM_ITS ---
EXAMINATION: MM SCREENING DIGITAL BREAST TOMOSYNTHESIS, BILATERAL CLINICAL INFORMATION: Screening. Asymptomatic. COMPARISON: Mammography: This study is compared with prior exams dating back to 2017. TECHNIQUE: Digital breast tomosynthesis is performed in both the craniocaudal and mediolateral oblique views along with computer-aided detection (CAD). Synthesized 2D images are generated from the tomosynthesis. FINDINGS: There are scattered areas of fibroglandular density (ACR BI-RADS breast composition Category b). There are no significant masses, abnormal calcifications, or other abnormalities. There is tissue marker present in the left breast from prior benign percutaneous biopsy. MM/MM tomosynthesis screening BI IMPRESSION: No mammographic evidence of malignancy. ASSESSMENT: BI-RADS BI-RADS 2 - Benign Findings RECOMMENDATION: Routine annual mammography screening. 1 year F/U This examination should not preclude the clinical evaluation of a suspicious palpable abnormality. This patient's information was entered into a reminder system with a target due date for their next mammogram.
== END 2023-06-30 10:31 | disposition home or self-care (01) ==
LOC: HO.MAMMO 10:30
PROVIDERS: PCP Internal Medicine; Visit Provider Advanced Practice Midwife
DX: Z12.31 Encounter for screening mammogram for malignant neoplasm of breast (principal)
CPT/HCPCS: 77063; 77067

== ENCOUNTER → 2023-06-30 11:00 | Outpatient (BNV) | payer OTHER, SELFPAY | PROVIDERS: PCP Internal Medicine; Visit Provider Radiology Diagnostic Radiology | DX: Z12.31 Encounter for screening mammogram for malignant neoplasm of breast (principal) | CPT/HCPCS: 77063; 77067 ==

== ENCOUNTER → 2023-08-04 08:06 | Outpatient (REF) | payer OTHER, SELFPAY ==
--- NOTE | ~2023-08-04 | NM_ITS ---
EXAMINATION: RADIONUCLIDE SOLID FOOD GASTRIC EMPTYING 4-HOUR STUDY CLINICAL INFORMATION: Gastroparesis. COMPARISON: None. TECHNIQUE: A standard meal consisting of 4 oz of Egg Beaters brand equivalent tagged with 1 mCi Tc-99m Sulfur Colloid, 6 oz water and 2 slices of toast with jelly was administered orally to the patient. Images were obtained using a dual head gamma camera in the anterior and posterior projections over of the stomach immediately post ingestion and at hourly intervals up to 4 hours post ingestion. The anterior and posterior counts at each time interval were averaged using the geometric mean and expressed as percentage of the immediate post ingestion counts. FINDINGS: There is good visualization of activity in the stomach immediately post ingestion. As the study progresses, there is good clearance of activity from the stomach and visualization of progressively increasing small bowel activity. By the end of the study, there is almost no retention noted in the stomach. Retention in the stomach at each time interval was: 1 hour 77% (normal 37%-90%) 2 hours 45% (normal 30%-60%) 3 hours 16% 4 hours 1% (normal 0%-10%) NM/NM gastric emptying study IMPRESSION: Normal 4-hour solid food gastric emptying study. Gastric emptying study grading per JNMT Consensus Recommendations in 2008: https://tech.snmjournals.org/content/36/1/44 Grade 1 (mild retention): 11-20% at 4 hours Grade 2 (moderate retention): 21-35% at 4 hours Grade 3 (severe retention): 36-50% at 4 hours Grade 4 (very severe retention): >50% retention at 4 hours
== END ==
LOC: HO.NUCMED 08:06
PROVIDERS: PCP Internal Medicine; Visit Provider Internal Medicine
DX: K31.84 Gastroparesis (principal)
CPT/HCPCS: 78264; A9541

== ENCOUNTER 2023-12-26 06:50 | Emergency (ER) | payer OTHER, SELFPAY ==
--- NOTE | ~2023-12-26 | XR_ITS ---
EXAMINATION: XR CHEST CLINICAL INFORMATION: Cough, chest tightness COMPARISON: Chest radiograph 08/25/2022 TECHNIQUE: 2 views of the chest were obtained. FINDINGS: Mild left basilar reticular opacities. No focal consolidation. No pleural effusion or pneumothorax. Cardiomediastinal silhouette is unchanged. XR/XR chest 2V IMPRESSION: Mild left basilar reticular opacities, may reflect atelectasis, aspiration, or atypical/viral pneumonia. Electronically signed by: Huber Schmitz MD 12/26/2023 11:14 AM EDT
[2023-12-26 07:13] VITALS: BP 108/69; PULSE 68; RESP 18; TEMP 37.2; O2SAT 95; BMI 23.1
--- NOTE | 2023-12-26 07:50 | ED.SOB ---
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 Friedman HPI Narrative: 58-year-old female current smoker came in for coughing, chest pain with coughing, generalized body ache, left-sided chest wall pain especially with coughing, cough is nonproductive, no fever, chills, no sick contacts, no recent travel. Related Data Home Medications ?Medication ?Instructions ?Recorded ?Confirmed cholecalciferol (vitamin D3) 25 25 mcg PO DAILY 12/08/20 06/13/23 mcg (1,000 unit) capsule Previous Rx's ?Medication ?Instructions ?Recorded albuterol sulfate 90 mcg/actuation 2 puff inhalation Q4-6H PRN 02/10/23 aerosol inhaler shortness of breath or wheezing #8.5 grams albuterol sulfate 0.63 mg/3 mL 0.63 mg (3 mL) inhalation QID PRN 06/13/23 solution for nebulization shortness of breath or wheezing #90 mL terbinafine HCl 250 mg tablet 250 mg PO DAILY 90 days #90 tabs 06/13/23 ibuprofen 600 mg tablet 600 mg PO Q8H PRN pain #20 tabs 11/26/23 albuterol sulfate 90 mcg/actuation 2 puff inhalation Q6H PRN 12/26/23 aerosol inhaler shortness of breath or wheezing #8.5 grams azithromycin 250 mg tablet See Rx Instructions PO .COMPLEX #6 12/26/23 (Zithromax) tabs guaifenesin 200 mg/5 mL oral liquid 200 mg (5 mL) PO Q4H PRN cough 12/26/23 #118 mL prednisone 20 mg tablet 20 mg PO BID #10 tabs 12/26/23 Allergies Allergy/AdvReac Type Severity Reaction Status Date / Time No Known Allergies Allergy Verified 12/26/23 07:13 Review of Systems Review of Systems: All other systems are reviewed and are negative Constitutional: Reports as per HPI and Reports no additional constitutional complaints Eyes: Reports as per HPI and Reports no additional eye complaints Reports system reviewed and no additional complaints, except as documented Cardiovascular: Reports as per HPI and Reports no additional cardiovascular complaints Respiratory: Reports as per HPI and Reports no additional respiratory complaints Gastrointestinal: Reports as per HPI and Reports no additional gastrointestinal complaints Genitourinary: Reports no additional female genitourinary complaints Musculoskeletal: Reports no additional musculoskeletal complaints Skin/Breast: Reports system reviewed and no additional complaints, except as docu Psychiatric: Reports no additional psychiatric complaints Endocrine: Reports no additional endocrine complaints Hematologic/Lymphatic: Reports no additional hematologic/lymphatic complaints Allergic/Immunologic: Reports no additional allergic/immunologic complaints Reports system reviewed and no additional complaints, except as documented and Reports Abnormal speech present [facility] Past Medical History Medical History Mild asthma GERD (gastroesophageal reflux disease) Varicose veins of both lower extremities Blurry vision, bilateral Smoker Hypovitaminosis D Surgical History Hx of section History of tubal ligation Hx laparoscopic cholecystectomy Family History Family History Mother No problems noted. Father Diabetes mellitus Social History Social History Housing: House Alcohol intake: current Alcohol intake frequency: holidays/special occasions only Alcohol type: beer Patient Tobacco Use Status: Current everyday Tobacco user Tobacco use type: Cigarette Cigarettes Per Day: 7 e-Cigarette/Vaping Use: Never Used Second Hand Smoke Exposure: No Advance Directives: No Advance Directives Information Provided: Yes service: No Current occupational status: employed Current occupational exposures/hazards: No Cognitive needs: No Hearing needs: No Vision needs: Yes Physical Exam Vital Signs: Vital Signs: Last Vital Signs Temp 99.0 F 12/26/23 07:13 Pulse 68 12/26/23 08:29 Resp 18 12/26/23 08:29 BP 108/69 12/26/23 07:13 Pulse Ox 95 12/26/23 07:13 O2 Del Method Room Air 12/26/23 07:13 BMI result Body Mass Index 23.1 Vital signs have been reviewed and appear to be correct. Blood pressure elevated. Heart rate normal. Respiratory rate normal. Temperature normal. Oxygen saturation normal. Appearance: Alert. Oriented X3. No acute distress. Head: Normal external exam. Normocephalic. Atraumatic. No Ayala signs noted. No raccoon eyes noted Eyes: PERRLA. EOMI. Conjunctiva and sclera normal. Eyelids normal. ENT: TM's Normal. Pharynx normal. Uvula midline. Moist mucous membranes. No trismus noted. No drooling noted. No muffled voice noted. Neck: Normal inspection. Neck supple. FROM. No adenopathy. Thyroid Normal. No meningeal signs. No neck mass noted. CVS: Normal heart rate and rhythm. Heart sound normal. No murmurs noted. Pulses normal throughout. Respiratory: No respiratory distress. Painless inspiration. Decreased breathing sounds bilaterally, expiratory wheezing with prolonged expiration, left-sided chest wall tenderness to touch, no step-off, No accessory muscle usage noted or decreased air movement noted. Abdomen: Soft and nontender. Bowel sounds normal in all 4 quadrants. No distention noted. No organomegaly noted. No visible injury noted. Back: No CVA tenderness. Full range of motion noted. Skin: Skin warm and dry. Normal skin color. Normal skin turgor. No rashes/lesions/lacerations noted. Extremities: No lower extremity edema. Extremities exhibit normal range of motion. Extremities nontender. Neuro: Oriented X 3. Cranial nerve exam: II-XII are grossly intact No motor deficit. No sensory deficit. Reflexes normal. Course Reevaluation(s) Reevaluation #1: Patient's symptoms secondary to acute bronchitis will start the patient on Z-Mynor/prednisone/albuterol/coughing medication. Patient is refusing EKG insisting that it is not needed. Time: 10:18 Medications Administered Discontinued Medications Generic Name Dose Route Start Last Admin Trade Name [place] PRN Reason Stop Dose Admin Albuterol Sulfate 5 mg 12/26/23 07:38 12/26/23 08:28 Albuterol Sulfate (0.083%) 2.5 Mg/3 Ml Vial.Neb INHALE 12/26/23 07:39 5 mg ONCE ONE Administration Guaifenesin/Codeine Phosphate 10 ml 12/26/23 07:38 12/26/23 07:57 Guaifen/Codeine Sf 200/20/10ml 10 Ml Liquid PO 12/26/23 07:39 10 ml ONCE ONE Administration Prednisone 40 mg 12/26/23 07:38 12/26/23 07:56 Prednisone 20 Mg Tablet PO 12/26/23 07:39 40 mg ONCE ONE Administration Medical Decision Making Differential Diagnosis Differential Diagnoses: The differential diagnosis associated with the presentation includes (ACS, chest wall contusion, acute bronchitis, pneumonia, pneumothorax, pleural effusion, CHF, electrolyte derangement, severe anemia.) Admission/Observation Consideration of admission/observation: Escalation of care including admission/observation considered Lab Data MDM Lab Attestation statement: I reviewed the patient's lab results. 12/26/23 08:21 12/26/23 08:21 Labs: Lab Results 12/26/23 12/26/23 Range/Units 07:23 08:21 WBC 7.9 (4.8-10.8) X10*3/uL RBC 4.83 (4.20-5.50) X10*6/uL Hgb 14.0 (12.0-16.0) g/dl Hct 42.6 (37.0-47.0) % MCV 88.2 (80.0-98.0) fL MCH 29.0 (27.0-33.0) pg MCHC 32.9 (31.0-35.0) g/dl RDW 13.6 (11.0-16.0) % Plt Count 200 (160-400) X10*3/uL MPV 9.0 L (9.4-12.3) fL Immature Gran % (Auto) 0.3 (0.0-0.4) % Neut % (Auto) 67.8 (45-73) % Lymph % (Auto) 18.5 L (20-40) % Ceiba % (Auto) 11.5 H (2-11) % Eos % (Auto) 1.5 (0-4) % Baso % (Auto) 0.4 (0-2) % Lymph # (Auto) 1.5 (1.2-4.9) X10*3/uL Ceiba # (Auto) 0.9 (0.1-1.2) X10*3/uL Eos # (Auto) 0.1 (0.0-0.4) X10*3/uL Baso # (Auto) 0.0 (0.0-0.2) X10*3/uL Abs Immat Gran (auto) 0.02 (0.00-0.03) X10*3/uL Absolute Neuts (auto) 5.4 (2.0-8.3) x10*3/uL Absolute Nucleated RBC 0.000 (0.0-0.012) X10*3/uL Nucleated RBC % (auto) 0.0 (0.0-0.2) /100WBC Sodium 141 (135-145) mmol/L Potassium 4.4 (3.3-5.1) mmol/L Chloride 105 (96-108) mmol/L Carbon Dioxide 27 (22-29) mmol/L Anion Gap 13 (12-20) BUN 7 L (9-16) mg/dL Creatinine 0.78 (0.5-1.4) mg/dL Estim Creat Clear Calc 58.6 Estimated GFR > 60 Random Glucose 122 H (60-115) mg/dL Calcium 10.0 (8.4-10.2) mg/dL Troponin I High Sens 3.7 (<3.5-17.0) ng/L B-Natriuretic Peptide 36 (<100) pg/mL Influenza Type A (PCR) NEGATIVE (Negative) Influenza Type B (PCR) NEGATIVE (Negative) RSV RNA Qual (PCR) NEGATIVE (Negative) SARS-CoV-2 RNA (RT-PCR) NEGATIVE (Negative) Independent Interpretation I performed an independent interpretation of an: EKG (Patient refused EKG.) and Plain X-Ray (Chest: No acute intrathoracic pathology.) Radiology Impression Discussion of test interpretation with radiology: I have reviewed the radiologist's reading. Discharge Plan Discharge Clinical Impression: Acute bronchitis Patient Disposition: Home, Self-Care Instructions: How to Stop Smoking (ED), Acute Bronchitis (ED) Prescriptions: New albuterol sulfate 90 mcg/actuation HFA aerosol inhaler 2 puff inhalation Q6H PRN (Reason: shortness of breath or wheezing) Qty: 8.5 0RF azithromycin [Zithromax] 250 mg tablet See Rx Instructions .ROUTE .COMPLEX Qty: 6 0RF Rx Instructions: For 250 mg dose pack: take 500 mg today (day 1), then 250 mg for 4 days (days 2-5) prednisone 20 mg tablet 20 mg PO BID Qty: 10 0RF guaifenesin 200 mg/5 mL liquid 200 mg PO Q4H PRN (Reason: cough) Qty: 118 0RF No Action ibuprofen 600 mg tablet 600 mg PO Q8H PRN (Reason: pain) Qty: 20 0RF cholecalciferol (vitamin D3) 25 mcg (1,000 unit) capsule 25 mcg PO DAILY albuterol sulfate 0.63 mg/3 mL solution for nebulization 0.63 mg inhalation QID PRN (Reason: shortness of breath or wheezing) Qty: 90 0RF terbinafine HCl 250 mg tablet 250 mg PO DAILY 90 Days Qty: 90 0RF albuterol sulfate 90 mcg/actuation HFA aerosol inhaler 2 puff inhalation Q4-6H PRN (Reason: shortness of breath or wheezing) Qty: 8.5 0RF Referrals: Elizabeth Lance MD [Primary Care Provider] - Print Language: Pashto
[2023-12-26] MEDS: predniSONE 20 MG TABLET 40 MG PO (07:56)
[2023-12-26] MEDS: guaiFEN/Codeine SF 200/20/10ML 10 ML LIQUID PO (07:57)
[2023-12-26 08:06] LABS: Influenza A PCR NEGATIVE (Negative); Influenza B PCR NEGATIVE (Negative); Resp Syncy Virus RNA Qual PCR NEGATIVE (Negative); SARS COV2 PCR INHOUSE NEGATIVE (Negative)
[2023-12-26 08:25] LABS: MANUAL DIFF FLAG NO
[2023-12-26 08:27] LABS: Basophils Percent Auto 0.4 % (0-2); Eosinophils Absolute Auto 0.1 X10*3/uL (0.0-0.4); Eosinophils Percent Auto 1.5 % (0-4); Hematocrit 42.6 % (37.0-47.0); Imm Gran Abs Auto 0.02 X10*3/uL (0.00-0.03); Imm Gran Pct Auto 0.3 % (0.0-0.4); Lymphocytes Absolute Auto 1.5 X10*3/uL (1.2-4.9); Lymphocytes Percent Auto 18.5 % (20-40); Mean Corpuscular HGB Conc 32.9 g/dl (31.0-35.0); Mean Corpuscular Volume 88.2 fL (80.0-98.0); Monocytes Absolute Auto 0.9 X10*3/uL (0.1-1.2); Monocytes Percent Auto 11.5 % (2-11); Neutrophils Absolute Auto 5.4 x10*3/uL (2.0-8.3); Neutrophils Percent Auto 67.8 % (45-73); Platelet Count 200 X10*3/uL (160-400); Red Blood Count 4.83 X10*6/uL (4.20-5.50); Red Cell Distribution Width 13.6 % (11.0-16.0); White Blood Count 7.9 X10*3/uL (4.8-10.8)
--- NOTE | 2023-12-26 08:27 | MHC.EDTECH ---
patient requested an manager operating. patient stated that she does not want to do the EKG but will do the blood work. Patient refusing EKG at this time. RN and MD notified.
[2023-12-26] MEDS: Albuterol Sulfate (0.083%) 2.5 MG/3 ML VIAL.NEB 5 MG INHALE (08:28)
[2023-12-26 08:29] VITALS: PULSE 68; RESP 18; O2SAT 97
[2023-12-26 08:44] LABS: Anion Gap 13 (12-20); Blood Urea Nitrogen 7 mg/dL (9-16); Carbon Dioxide 27 mmol/L (22-29); Chloride 105 mmol/L (96-108); Creatinine Clr Calc Pharmacy 58.6; Estimated Glomerular Filt Rate > 60; Glucose Random 122 mg/dL (60-115); Potassium 4.4 mmol/L (3.3-5.1); Sodium 141 mmol/L (135-145)
[2023-12-26 08:51] LABS: B Type Natriuretic Peptide 36 pg/mL (<100)
[2023-12-26 08:53] LABS: Troponin-I High Sensitivity 3.7 ng/L (<3.5-17.0)
[2023-12-26 10:32] VITALS: BP 103/61; PULSE 77; RESP 20; TEMP 36.2; O2SAT 94
== END 2023-12-26 10:33 | disposition home or self-care (01) ==
PROVIDERS: Emergency Provider Emergency Medicine; PCP Internal Medicine
DX: J20.9 Acute bronchitis, unspecified (principal); R07.89 Other chest pain; R06.02 Shortness of breath; R05.9 Cough, unspecified; Z03.818 Encounter for observation for suspected exposure to other biological agents ruled out; Z79.899 Other long term (current) drug therapy
CPT/HCPCS: 0241U; 36415; 71046; 80048; 83880; 84484; 85025; 94640; 99284

== ENCOUNTER 2024-03-26 11:31 | Outpatient (AMB) | payer OTHER, SELFPAY ==
--- NOTE | 2024-03-26 11:58 | MHC.OFFWIV ---
Intake Vital Signs 03/26/24 12:00 Weight 127 lb BP 110/66 Blood Pressure Location Rt brachial Position Sitting Pulse 62 Pulse Source Pulse Oximeter Pulse Oximetry (%) 98 Oxygen Delivery Method Room Air Intake Visit Reasons: EP-b/l ear pain & lwr back pain from a fall Intake Note: Patient here for bilat ear pain and also slipped about 1 week ago and fell on her lower back and since then she has had pain. Patient Tobacco Use Status: Current everyday Tobacco user Allergies No Known Allergies Allergy (Verified 03/26/24 12:01) Do you need a note to return to daycare/school/sports/work: Yes HPI HPI Comments History of Present Illness Details The patient is a 58-year-old female presenting with 2 complaints, the 1st complaint is a lesion on the top of her right ear and associated pain that began three months ago. She has been applying Vaseline to the area without relief. She states there is one starting on her left ear as well. The patient 2nd complaint is acute back pain that began following a fall where she slipped on a floor after mopping. The pain worsens with prolonged walking and sitting, but is somewhat relieved by ice application. She has tried applying Vicks and using ice for pain relief. The back discomfort radiates to her medial left buttock but does not extend down the leg. There have been no reports of cervical spine or mid back pain. This is the first medical consultation for both conditions, with no prior treatments effectively managing these symptoms. [facility] Medical History Mild asthma GERD (gastroesophageal reflux disease) Varicose veins of both lower extremities Blurry vision, bilateral Smoker Hypovitaminosis D Surgical History Hx of section History of tubal ligation Hx laparoscopic cholecystectomy Family History Mother No problems noted. Father Diabetes mellitus Social History Housing: House Alcohol intake: current Alcohol intake frequency: holidays/special occasions only Alcohol type: beer Patient Tobacco Use Status: Current everyday Tobacco user Tobacco use type: Cigarette Cigarettes Per Day: 7 e-Cigarette/Vaping Use: Never Used Second Hand Smoke Exposure: No service: No Current occupational status: employed Current occupational exposures/hazards: No Cognitive needs: No Hearing needs: No Vision needs: Yes Female Reproductive History Menstrual Age of Menarche: 11 Review of Systems Const All systems reviewed & are unremarkable except as noted in HPI and below Physical Exam Vital Signs: Last Vital Signs Pulse 62 03/26/24 12:00 BP 110/66 03/26/24 12:00 Pulse Ox 98 03/26/24 12:00 Oxygen Delivery Method Room Air 03/26/24 12:00 Const General: cooperative, healthy appearing and comfortable Orientation/consciousness: patient oriented x3 HEENT Head: Yes normal to inspection and Yes normocephalic General nose exam: Normal external nose present Face and sinus: Yes normal facial exam Eyes General: appearance normal, both eyes and all related structures Resp Effort & Inspection: normal respiratory effort and able to speak in complete sentences General: Yes no CVA tenderness Back/Spine/Pelvis Back: no CVA tenderness Cervical Spine: cervical ROM normal and No Cervical spine tenderness Thoracic/Lumbar Spine: thoracic and lumbar spine normal to inspection, pain with thoraco-lumbar ROM, paraspinal muscle tenderness on the left, No thoracic spinal tenderness and No lumbar spinal tenderness Sacrum: no tenderness Coccyx: no tenderness Neuro General: patient oriented x3 Extrem Other: Straight leg raise test negative on right; Straight leg raise test negative on left Assessment & Plan Assessment & Plan (1) Cutaneous horn: Code(s): L85.8 - Other specified epidermal thickening Plan: - For the ear lesion: A referral will be made for dermatological evaluation to further assess and diagnose the lesion behind the ear. - For back pain: Prescribed meloxicam, an NSAID, to be taken once daily. Additionally, a muscle relaxant is prescribed for nighttime use to aid in muscle relaxation and pain relief, with instruction not to drive or consume alcohol while taking the medication. Follow-up with Dr. Barajas if symptoms persist. Patient was informed and verbally consented to the use of an ambient scribe for clinic note documentation during this visit. Orders: Referrals Dermatology Referral L85.8 - Other specified epidermal thickening Medications: New cyclobenzaprine 5 mg PO Q8H PRN 20 tabs 0RF Muscle Spasm meloxicam 15 mg PO DAILY 14 tabs 0RF Coding Level of Care Code Est Pt Level 4 (73743) Diagnoses Cutaneous horn L85.8
[2024-03-26 12:00] VITALS: BP 110/66; PULSE 62; O2SAT 98
== END 2024-03-26 12:42 | disposition home or self-care (01) ==
PROVIDERS: PCP Internal Medicine; Visit Provider Physician Assistant
DX: L85.8 Other specified epidermal thickening (principal)

== ENCOUNTER → 2024-03-26 11:31 | Outpatient (BNVA) | payer OTHER, SELFPAY | PROVIDERS: PCP Internal Medicine; Visit Provider Physician Assistant | DX: L85.8 Other specified epidermal thickening (principal) | CPT/HCPCS: 99212 ==

== ENCOUNTER 2024-05-09 13:47 | Outpatient (REF) | payer OTHER, SELFPAY ==
--- NOTE | ~2024-05-09 | XR_ITS ---
CLINICAL HISTORY: M79.601 - Pain in right arm 2 view right humerus Comparison: None Findings: No fractures or dislocations. No significant arthritic change. No radiopaque foreign body. IMPRESSION: 1. Normal right humerus This document has been electronically signed by: Naman Roach MD on 05/10/2024 18:56:47
--- NOTE | ~2024-05-09 | XR_ITS ---
CLINICAL HISTORY: M25.521 - Pain in right elbow 3 view right elbow Comparison: None Findings: No acute fractures. Normal alignment. No significant loss of joint space, osteophytes, or erosions. No joint effusion. No radiopaque foreign body. IMPRESSION: 1. No acute findings This document has been electronically signed by: Naman Roach MD on 05/10/2024 18:54:41
--- NOTE | ~2024-05-09 | XR_ITS ---
CLINICAL HISTORY: M25.552 - Pain in left hip 2 view left hip Comparison: None Findings: The bones are intact. Mild arthritic change of the left hip. Severe spondylosis at the lumbosacral junction. The soft tissues are unremarkable. IMPRESSION: No acute findings. This document has been electronically signed by: Idalia Michelle MD on 05/14/2024 14:33:24
--- NOTE | ~2024-05-09 | XR_ITS ---
CLINICAL HISTORY: M25.511 - Pain in right shoulder 3 view right shoulder Comparison: None Findings: No fractures or dislocations. Mild arthritic change of both the glenohumeral and acromioclavicular joints. No erosions. No radiopaque foreign body. IMPRESSION: 1. No acute findings This document has been electronically signed by: Idalia Michelle MD on 05/14/2024 14:34:23
== END 2024-05-09 13:48 | disposition home or self-care (01) ==
LOC: HO.XRAY 13:47
PROVIDERS: PCP Internal Medicine; Visit Provider Internal Medicine
DX: M25.521 Pain in right elbow (principal); M25.511 Pain in right shoulder; M79.601 Pain in right arm; M25.552 Pain in left hip; H60.90 Unspecified otitis externa, unspecified ear
CPT/HCPCS: 73030; 73060; 73070; 73502; 96127; 99212

== ENCOUNTER 2024-05-09 13:47 | Outpatient (AMB) | payer OTHER, SELFPAY ==
[2024-05-09 14:13] VITALS: BP 120/78; PULSE 58; O2SAT 99; BMI 24.4
--- NOTE | 2024-05-09 14:13 | MHC.PC.OV ---
Vital Signs 05/09/24 14:13 Height 5 ft 1 in Weight 129 lb 6 oz BMI 24.4 BP 120/78 Blood Pressure Location Lt brachial Position Sitting Pulse 58 Pulse Source Pulse Oximeter Pulse Oximetry (%) 99 Oxygen Delivery Method Room Air Intake Visit Reasons: right ear pain Intake Note: The patient is here for a lump on the right earlobe with pain for the past two months. Additionally, the patient had a fall at around 9 a.m. today and is now complaining of right arm pain. 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 Accompanied by: Self / Same As Patient Allergies No Known Allergies Allergy (Verified 05/09/24 14:44) Medication List - Last Reconciled 05/09/24 by Elizabeth Rodgers MD albuterol sulfate 90 mcg/actuation 2 puffs inhalation Q6H PRN albuterol sulfate 0.63 mg (3 mL) inhalation QID PRN cholecalciferol (vitamin D3) 25 mcg PO DAILY cyclobenzaprine 5 mg PO Q8H PRN guaifenesin 200 mg (5 mL) PO Q4H PRN ibuprofen 600 mg PO Q8H PRN meloxicam 15 mg PO DAILY terbinafine HCl 250 mg PO DAILY 90 days Tobacco use date assessed: 05/09/24 Dental Screening Dental Screen Date: 05/09/24 Did you have a dental visit in the last 12 months?: Yes Did you have a dental problem in the last 6 months where you did not have access to dental care?: No Was dental information given to patient?: Patient has dentist HPI HPI Comments History of Present Illness Details The patient is a 58-year-old female presenting with complaints of a painful ear and arm pain. The ear lesion has been present for approximately two months, initially believed to be dermatological in nature. The lesion is described as erythematous and causes significant discomfort, interfering with sleep. There has been no treatment with antibiotics to date, and the patient experiences notable inflammation in the affected area. Additionally, the patient presents with arm pain, which started after a sensation of slipping. The torsion caused by this incident has resulted in impaired arm mobility, affecting the patient's ability to perform daily activities such as hair combing. No prior interventions have been mentioned for the arm pain. Also has left hip pain after the fall. [facility] Medical History (Updated 05/09/24 @ 14:58 by Elizabeth Rodgers MD) Mild asthma GERD (gastroesophageal reflux disease) Varicose veins of both lower extremities Blurry vision, bilateral Smoker Hypovitaminosis D Surgical History Hx of section History of tubal ligation Hx laparoscopic cholecystectomy Family History Mother No problems noted. Father Diabetes mellitus Social History Housing: House Alcohol intake: current Alcohol intake frequency: holidays/special occasions only Alcohol type: beer Patient Tobacco Use Status: Current everyday Tobacco user Tobacco use type: Cigarette Cigarettes Per Day: 4 e-Cigarette/Vaping Use: Never Used Second Hand Smoke Exposure: No service: No Current occupational status: employed Current occupational exposures/hazards: No Cognitive needs: No Hearing needs: No Vision needs: Yes Female Reproductive History Menstrual Age of Menarche: 11 Questionnaire PHQ-9 Over the last 2 weeks, how often have you been bothered by any of the following problems? 1. Little interest or pleasure in doing things: not at all 2. Feeling down, depressed, or hopeless: not at all 3. Trouble falling or staying asleep, or sleeping too much: not at all 4. Feeling tired or having little energy: not at all 5. Poor appetite or overeating: not at all 6. Feeling bad about yourself - or that you are a failure or have let yourself or your family down: not at all 7. Trouble concentrating on things, such as reading the newspaper or watching television: not at all 8. Moving or speaking so slowly that other people could have noticed. Or the opposite - being so fidgety or restless that you have been moving around a lot more than usual: not at all 9. Thoughts that you would be better off or of hurting yourself in some way: not at all Total score: 0 Depression Screening Interpretation: Negative Depression Screening Done: Yes 44386 - PHQ-9 Billing: Yes Source: Developed by Drs. Darrell Esparza, Jazmine Spencer, Chaparro Harris and colleagues, with an educational bernie from [employer]. Thrive Questionnaire Date Thrive assessed: 05/09/24 I am a: Patient What is your living situation today?: I have a steady place to live Within the past 12 months, did the food you bought not last and you didn't have the money to get more?: Never true Within the past 12 months, did you worry whether your food would run out before you got money to buy more?: Never true Do you have trouble paying for medicines?: No Do you have trouble getting transportation to medical appointments?: No Do you have trouble paying your heating and electricity bill?: No Do you have trouble taking care of your child, family member or friend?: No Do you have trouble with day-to-day activities such as bathing, preparing meals, shopping, managing finances, etc.?: No Are you currently unemployed and looking for a job?: No Are you interested in more education?: No Please select the resources that you would like help with: None Currently or been in a relationship where the following occur: No concerns reported THRIVE Score: 0 AUDIT C Alcohol Use Questionnaire (AUDIT-C) 1. How often do you have a drink containing alcohol?: Monthly or less 2. How many drinks containing alcohol do you have on a typical day when you are drinking?: 1 or 2 3. How often do you have six or more drinks on one occasion?: Never Total Score: 1 ALLY-7 AMB Questionnaire ALLY-7 Date ALLY - 7 assessed: 05/09/24 Feeling nervous, anxious, or on edge: 0 = Not at all Not being able to stop or control worryin = Not at all Worrying too much about different things: 0 = Not at all Trouble relaxin = Not at all Being so restless that it is hard to sit still: 0 = Not at all Becoming easily annoyed or irritable: 0 = Not at all Feeling afraid as if something awful might happen: 0 = Not at all Total ALLY-7 score (0-4 normal; 5-9 mild; 10-14 moderate; 15-21 severe): 0 Source: Developed by Drs. Darrell Esparza, Jazmine Spencer, Chaparro Harris and colleagues, with an educational bernie from [employer]. ALLY-7 Assessment Billing ALLY-7 Assessment Tool: ALLY-7 Assessment 22175 Review of Systems Const Details: - Ear, Nose, Throat: Reports ear pain, erythematous outer ear. - Musculoskeletal: Reports arm pain and difficulty moving the arm. Physical exam (Primary Care) Vital Signs: Last Vital Signs Pulse 58 05/09/24 14:13 BP 120/78 05/09/24 14:13 Pulse Ox 99 05/09/24 14:13 Oxygen Delivery Method Room Air 05/09/24 14:13 BMI result Body Mass Index 24.4 Tobacco/Smoking Status: Tobacco use Status Tobacco use date assessed 05/09/24 05/09/24 14:21 Patient Tobacco Use Status Current everyday Tobacco 05/09/24 14:21 Tobacco use type Cigarette 05/09/24 14:21 e-Cigarette/Vaping Use Never Used 05/09/24 14:21 PHQ-9: PHQ-9 Score PHQ-9: Total score 0 05/09/24 14:49 Depression Screening Interpretation: Negative Thrive Assessment: Date of Thrive Assessment Date Thrive assessed 05/09/24 05/09/24 14:21 Currently or been in a relationship where the following occur: No concerns reported Const Other: General: No confusion Ears: External ears with inflammation and redness, possible external otitis Respiratory: Normal respiratory effort, clear to auscultation bilaterally Cardiovascular: No jugular venous distension, regular rate, regular rhythm, S1 normal heart sound present and S2 normal heart sound present Extremities: Limited ROM in the right arm due to pain Office Procedures Flu Questionnaire Does the patient have a severe egg allergy?: No Immunizations Fluarix Triv [id number] (PF) 45 mcg (15 mcg x 3)/0.5 mL IM syringe Performing Provider: Elizabeth Rodgers MD [facility] [place] [facility] Documented (not given) by: KAMARI Good on 05/09/24 14:22 Reason Not Given: Patient Refused Coding Level of Care Code Est Pt Level 4 (44430) Complex EM visit Add On G2211 Diagnoses Left hip pain M25.552 Otitis externa H60.90 Right shoulder pain M25.511 Right arm pain M79.601 Additional Codes ALLY-7 Assessment Billing - ALLY-7 Assessment Tool: ALLY-7 Assessment 20110 ([id number]) PHQ-9 - 08431 - PHQ-9 Billing: Yes ([id number]) Time Spent (min) 22 Assessment & Plan Assessment & Plan (1) Left hip pain: Code(s): M25.552 - Pain in left hip Category: Medical (2) Otitis externa: Code(s): H60.90 - Unspecified otitis externa, unspecified ear Category: Medical (3) Right shoulder pain: Code(s): M25.511 - Pain in right shoulder Category: Medical (4) Right arm pain: Code(s): M79.601 - Pain in right arm Category: Medical Plan - Prescribe ear drops for the inflammation in the ear. - Order imaging studies: shoulder, elbow, and arm X-rays to assess the extent of the injury. - Recommend physical therapy for arm mobility improvement. - Evaluate for further intervention if symptoms do not improve. Patient was informed and verbally consented to the use of an ambient scribe for clinic note documentation during this visit. I discussed with the patient the likely cause of the painful ear lesion, describing it as inflammatory in nature. The management plan includes starting ear drops to address this inflammation. We also reviewed the arm pain, likely resulting from a torsion injury. An imaging study will be conducted to clarify the diagnosis, and physical therapy was recommended as a conservative treatment measure. I advised the patient on the importance of follow-up if symptoms persist or worsen and provided anticipatory guidance related to managing the injury. Orders: Orders XR elbow RT 2V Today M25.521 - Pain in right elbow Lipid Panel Today E78.5 - Hyperlipidemia, unspecified Comprehensive [place]. Panel Fast Today K21.9 - Gastro-esophageal reflux disease without esophagitis Influenza [id number] Immunization Today Z23 - Encounter for immunization XR shoulder RT min 2V Today M25.511 - Pain in right shoulder XR humerus RT Today M79.601 - Pain in right arm OT Evaluation and Treatment Today M25.511 - Pain in right shoulder, M79.601 - Pain in right arm Vitamin D 25-OH Total Today E55.9 - Vitamin D deficiency, unspecified Medications: New ciprofloxacin-hydrocortisone 0.2-1 % (Cipro HC) 3 drps otic (ears) BID 10 mL 0RF 7 days H60.90 - Unspecified otitis externa, unspecified ear Refilled ibuprofen 600 mg PO Q8H PRN 20 tabs 0RF pain Patient Instructions: - Apply prescribed ear drops as directed to reduce inflammation. - Attend scheduled imaging studies for the shoulder, elbow, and arm. - Begin physical therapy sessions as recommended. - Monitor symptoms and contact me if there is no improvement or if symptoms worsen.
== END 2024-05-09 14:57 | disposition home or self-care (01) ==
PROVIDERS: PCP Internal Medicine; Visit Provider Internal Medicine
DX: M25.552 Pain in left hip (principal); H60.91 Unspecified otitis externa, right ear; M25.511 Pain in right shoulder; M79.601 Pain in right arm

== ENCOUNTER → 2024-05-09 15:16 | Outpatient (BNV) | payer OTHER, SELFPAY | PROVIDERS: PCP Internal Medicine; Visit Provider Specialist | DX: M25.552 Pain in left hip (principal); M25.511 Pain in right shoulder | CPT/HCPCS: 73030; 73060; 73070; 73502 ==

== ENCOUNTER 2024-06-07 08:05 | Outpatient (REF) | payer OTHER, SELFPAY ==
[2024-06-07 09:08] LABS: Alanine Aminotransferase 31 U/L (0-31); Albumin Level 4.5 g/dL (3.5-5.0); Alkaline Phosphatase 95 U/L (39-117); Anion Gap 10 (12-20); Aspartate Amino Transferase 25 U/L (5-31); Bilirubin Direct 0.1 mg/dL (0.0-0.5); Bilirubin Total 0.4 mg/dL (0.0-1.0); Blood Urea Nitrogen 11 mg/dL (9-16); Calcium 10.4 mg/dL (8.4-10.2); Carbon Dioxide 29 mmol/L (22-29); Chloride 110 mmol/L (96-108); Cholesterol 223 mg/dL (<200); Estimated Glomerular Filt Rate > 60; Glucose Fasting 112 mg/dL (60-99); HDL Cholesterol 46 mg/dL (>40); LDL Cholesterol Calculated 157 mg/dL (<100); Potassium 4.5 mmol/L (3.3-5.1); Sodium 144 mmol/L (135-145); Total Protein 7.3 g/dL (6.5-8.0); Triglycerides 100 mg/dL (<150)
[2024-06-07 09:25] LABS: Vitamin D 25-OH Total 15.3 ng/mL (>30)
== END 2024-06-07 08:06 | disposition home or self-care (01) ==
LOC: HO.LAB 08:05
PROVIDERS: PCP Internal Medicine; Visit Provider Internal Medicine
DX: E78.5 Hyperlipidemia, unspecified (principal); E55.9 Vitamin D deficiency, unspecified; B35.1 Tinea unguium; K21.9 Gastro-esophageal reflux disease without esophagitis
CPT/HCPCS: 36415; 80053; 80061; 80076; 82248; 82306

== ENCOUNTER 2024-06-20 10:01 | Outpatient (AMB) | payer OTHER, SELFPAY ==
[2024-06-20 10:12] VITALS: BP 108/68; BMI 23.2
--- NOTE | 2024-06-20 10:12 | A.OFFPC_ITS ---
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 Steward Name: Elizabeth Rodgers MD Information Interpreted: non-clinical & clinical Accompanied by: Self / Same As Patient Allergies No Known Allergies Allergy (Verified 06/20/24 10:30) Medication List - Last Reconciled 06/20/24 by Elizabeth Rodgers MD albuterol sulfate 90 mcg/actuation 2 puffs inhalation Q6H PRN albuterol sulfate 0.63 mg (3 mL) inhalation QID PRN cholecalciferol (vitamin D3) 25 mcg PO DAILY 90 days ibuprofen 600 mg PO Q8H PRN Tobacco use date assessed: 05/09/24 Dental Screening Dental Screen Date: 06/20/24 Did you have a dental visit in the last 12 months?: No Did you have a dental problem in the last 6 months where you did not have access to dental care?: No Was dental information given to patient?: Yes HPI HPI Comments History of Present Illness Details The patient is a 58-year-old female presenting for her physical exam. The history includes osteoarthritis, noted particularly in the right arm and left hip. She reports occasional use of ibuprofen for associated pain, which she experiences sporadically. The patient acknowledges smoking approximately four cigarettes daily and is not currently considering cessation. There is a longstanding history of elevated cholesterol, though she does not take any lipid-lowering medication. She expresses concerns about diet's role in managing her cholesterol levels. The patient is also noted to have prediabetes, with recent fasting glucose recorded at 112 mg/dL. Vitamin D deficiency is docu mented, and supplementation has been advised. Additionally, a history of arterial hypertension is noted, but she is not on antihypertensive medication. - Tetanus vaccination last administered in 2003; patient declined the offer for a booster vaccine. - Last mammography performed last year, with a follow-up requested. - Pap smear last performed with negative HPV results. - Recommended colonoscopy overdue, last performed more than five years ago. - Recent lab results indicate vitamin D deficiency at 15.3 ng/mL. - Cholesterol is elevated, with a detail ed risk assessment showing a 3.6% risk of a cardiac event per the Hanson Risk Score. - Recommendations include dietary adjust ments to manage cholesterol and increased intake of vitamin D. [facility] Medical History Mild asthma GERD (gastroesophageal reflux disease) Varicose veins of both lower extremities Blurry vision, bilateral Smoker Hypovitaminosis D Surgical History Hx of section History of tubal ligation Hx laparoscopic cholecystectomy Family History Mother No problems noted. Father Diabetes mellitus Social History Housing: House Alcohol intake: current Alcohol intake frequency: holidays/special occasions only Alcohol type: beer Patient Tobacco Use Status: Current everyday Tobacco user Tobacco use type: Cigarette Cigarettes Per Day: 4 e-Cigarette/Vaping Use: Never Used Second Hand Smoke Exposure: No service: No Current occupational status: employed Current occupational exposures/hazards: No Cognitive needs: No Hearing needs: No Vision needs: Yes Female Reproductive History Menstrual Age of Menarche: 11 Questionnaire PHQ-9 Over the last 2 weeks, how often have you been bothered by any of the following problems? 1. Little interest or pleasure in doing things: not at all 2. Feeling down, depressed, or hopeless: not at all 3. Trouble falling or staying asleep, or sleeping too much: not at all 4. Feeling tired or having little energy: not at all 5. Poor appetite or overeating: not at all 6. Feeling bad about yourself - or that you are a failure or have let yourself or your family down: not at all 7. Trouble concentrating on things, such as reading the newspaper or watching television: not at all 8. Moving or speaking so slowly that other people could have noticed. Or the opposite - being so fidgety or restless that you have been moving around a lot more than usual: not at all 9. Thoughts that you would be better off or of hurting yourself in some way : not at all Total score: 0 Depression Screening Interpretation: Negative Depression Screening Done: Yes 28820 - PHQ-9 Billing: Yes Source: Developed by Drs. Darrell Esparza, Jazmine Spencer, Chaparro Harris and colleagues, with an educational bernie from [employer]. Thrive Questionnaire Date Thrive assessed: 05/09/24 I am a: Patient What is your living situation today?: I have a steady place to live Within the past 12 months, did the food you bought not last and you didn't have the money to get more?: Never true Within the past 12 months, did you worry whether your food would run out before you got money to buy more?: Never true Do you have trouble paying for medicines?: No Do you have trouble getting transportation to medical appointments?: No Do you have trouble paying your heating and electricity bill?: No Do you have trouble taking care of your child, family member or friend?: No Do you have trouble with day-to-day activities such as bathing, preparing meals, shopping, managing finances, etc.?: No Are you currently unemployed and looking for a job?: No Are you interested in more education?: No Please select the resources that you would like help with: None Currently or been in a relationship where the following occur: I choose not to answer THRIVE Score: 0 AUDIT C Alcohol Use Questionnaire (AUDIT-C) 1. How often do you have a drink containing alcohol?: Never Total Score: 0 Score Reviewed/Action Taken: No ALLY-7 AMB Questionnaire ALLY-7 Date ALLY - 7 assessed: 05/09/24 Feeling nervous, anxious, or on edge: 0 = Not at all Not being able to stop or control worryin = Not at all Worrying too much about different things: 0 = Not at all Trouble relaxin = Not at all Being so restless that it is hard to sit still: 0 = Not at all Becoming easily annoyed or irritable: 0 = Not at all Feeling afraid as if something awful might happen: 0 = Not at all Total ALLY-7 score (0-4 normal; 5-9 mild; 10-14 moderate; 15-21 severe): 0 Source: Developed by Drs. Darrell Esparza, Jazmine Spencer, Chaparro Harris and colleagues, with an educational bernie from [employer]. ALLY-7 Assessment Billing ALLY-7 Assessment Tool: ALLY-7 Assessment 64800 Review of Systems Const All systems reviewed & are unremarkable except as noted in HPI and below Card Denies chest pain at rest, Denies chest pain with activity, Denies edema, Denies irregular heart rhythm, Denies claudication, Denies dyspnea, Denies dyspnea on exertion, Denies orthopnea, Denies paroxysmal nocturnal dyspnea and Denies slow heart rate Resp Denies cough, Denies dyspnea and Denies dyspnea on exertion GI Denies abdominal pain, Denies change in bowel habits, Denies excessive flatus, Denies nausea and Denies vomiting Denies urinary incontinence, Denies urinary hesitancy and Denies urinary urgency Physical exam (Primary Care) Vital Signs: Last Vital Signs BP 108/68 06/20/24 10:12 BMI result Body Mass Index 23.2 Tobacco/Smoking Status: Tobacco use Status Tobacco use date assessed 05/09/24 06/20/24 10:15 Patient Tobacco Use Status Current everyday Tobacco 06/20/24 10:15 Tobacco use type Cigarette 06/20/24 10:15 e-Cigarette/Vaping Use Never Used 06/20/24 10:15 PHQ-9: PHQ-9 Score PHQ-9: Total score 0 06/20/24 10:57 Depression Screening Interpretation: Negative Thrive Assessment: Date of Thrive Assessment Date Thrive assessed 05/09/24 06/20/24 10:15 Currently or been in a relationship where the following occur: I choose not to answer [facility] Head: Yes normal to inspection, Yes normocephalic and Yes atraumatic Ears: external ears normal Eyes General: appearance normal, both eyes and all related structures Eyelids: Yes eyelids normal Conjunctivae: conjunctivae normal Neck Neck: Yes normal visual inspection and Yes supple Resp Effort & Inspection: normal respiratory effort Auscultation: clear to auscultation bilaterally Cardio Jugular venous distension: no JVD Rate: regular rate Rhythm: regular rhythm Heart sounds: S1 normal heart sound present and S2 normal heart sound present GI Inspection: Yes normal to inspection Palpation (GI): Soft to palpation and nontender Auscultation: normal bowel sounds Skin General skin exam: no rashes or lesions noted Neuro General: no focal motor deficits Extrem Right upper extremity: shoulder/upper arm Details: abnormal ROM Details: pain with active ROM Details: in ABduction and in extension Psych Appearance: grossly normal Office Procedures Flu Questionnaire Does the patient have a severe egg allergy?: No Immunizations Fluarix Triv [id number] (PF) 45 mcg (15 mcg x 3)/0.5 mL IM syringe Performing Provider: Elizabeth Rodgers MD [facility] [place] [facility] Documented (not given) by: SHANE Schultz on 06/20/24 10:57 Reason Not Given: Patient Refused Coding Level of Care Code Est Pt Level 3 (64895) Est Pt Prev Care 40-64y(45165) Diagnoses Physical exam Z00.00 Left hip pain M25.552 Right shoulder pain M25.511 Hypovitaminosis D E55.9 Additional Codes ALLY-7 Assessment Billing - ALLY-7 Assessment Tool: ALLY-7 Assessment 71654 ([id number]) PHQ-9 - 92423 - PHQ-9 Billing: Yes ([id number]) Time Spent (min) 35 Assessment & Plan Assessment & Plan (1) Physical exam: Code(s): Z00.00 - Encounter for general adult medical examination without abnormal findings Category: Medical (2) Left hip pain: Code(s): M25.552 - Pain in left hip Category: Medical (3) Right shoulder pain: Code(s): M25.511 - Pain in right shoulder Category: Medical (4) Hypovitaminosis D: Code(s): E55.9 - Vitamin D deficiency, unspecified Category: Medical Plan - Monitor and manage prediabetes with lifestyle changes and regular monitoring of blood glucose levels. - Advise on dietary measures to lower cholesterol, particularly increasing fiber intake and reducing fats. - Continue Vitamin D supplementation to address deficiency. - Recommend mammography as per schedule and colonoscopy considering the overdue status. - Continue self-care for arthritis with pain management as needed. - No new medications for arterial hypertension given the low Hanson Risk Score. - Conduct a follow-up regarding the smoking cessation option if the patient decides to consider it. - Discuss pain management options for arthritis, possibly involving physical therapy or orthopedic referral if the patient desires. Patient was informed and verbally consented to the use of an ambient scribe for clinic note documentation during this visit. During the visit, we discussed the importance of managing prediabetes with lifestyle modifications, specifically dietary changes to reduce sugar intake, given the elevated fasting glucose. I reviewed the cholesterol results and calculated the Hanson Risk Score, explaining the low risk of a cardiac event but discussing the benefits of dietary changes to manage cholesterol levels effectively. We also addressed the patient's smoking habits and the potential health benefits if she considers cessation. Further, I recommended taking the prescribed vitamin D supplement regularly to resolve the deficiency and advised on dietary sources of vitamin D. The patient agreed to monitor her diet and agreed on a follow-up mammogram and colonoscopy. I clarified that no antihypertensive medication was needed at present due to the low risk score. Orders: Orders Lipid Panel 6 Months E78.5 - Hyperlipidemia, unspecified Comprehensive [place]. Panel Fast 6 Months M25.552 - Pain in left hip Influenza [id number] Immunization Today Z23 - Encounter for immunization Referrals Open Access Screening Colonoscopy Referral Z12.12 - Encounter for screening for malignant neoplasm of rectum Medications: Refilled cholecalciferol (vitamin D3) 25 mcg PO DAILY 90 days 90 caps 1RF albuterol sulfate 90 mcg/actuation 2 puffs inhalation Q6H PRN 8.5 grams 0RF shortness of breath or wheezing albuterol sulfate 0.63 mg (3 mL) inhalation QID PRN 90 mL 0RF shortness of breath or wheezing J45.909 - Unspecified asthma, uncomplicated Patient Instructions: - Continue with vitamin D supplementation as prescribed. - Follow dietary recommendations to lower cholesterol. - Monitor blood glucose levels and adhere to dietary changes to prevent progression to diabetes. - Schedule mammography and plan for a colonoscopy to ensure regular screenings. - Practice self-care exercises for arthritis pain management. - Consider smoking cessation as an option to improve overall health. - Return for regular follow-ups to monitor health status and manage any new symptoms.
--- OUTSIDE RECORDS SUMMARY | 2024-06-20 10:45 | XMS_ITS | Clinical Summary ---
Author Organization [facility] it Address [address] [place] [address] Care Team Providers Care Correspondent Name Role Phone Too West MD Primary Care Provider [phone] Surgical History Surgery Date Site/Laterality Comments HYSTEROSCOPY PROCEDURE: LA HYSTEROSCOPY BX ENDOMETRIUM&/POLYPC W/WO D&C TUBAL LIGATION PROCEDURE: HISTORICAL TUBAL LIGATION ESOPHAGOGASTRODUODENOSCOPY 10/30/15 PROCEDURE: LA ESOPHAGOGASTRODUODENOSCOPY TRANSORAL DIAGNOSTIC; COMMENT: mild erosive gastritis, otherwise normal COLONOSCOPY 10/30/15 PROCEDURE: HISTORICAL COLONOSCOPY; COMMENT: two small adenomas, otherwise normal; repeat in 5 yrs Medical History Medical History Date Comments Other and unspecified hyperlipidemia 08/12/2005 DX:Other and unspecified hyperlipidemia Erosive gastritis 11/27/2015 DX:Erosive gas tritis Tubular adenoma of colon 11/27/2015 DX:Tubu lar adenoma of colon Irritable bowel syndrome with diarrhea 11/27/2015 DX:Irritable bowel syndrome with diarrhea Family History Medical History Relation Name Comments Hyperlipidemia Father Diabetes Son type 1 Blindness Neg Hx Breast cancer Neg Hx Cataracts Neg Hx Colon cancer Neg Hx Glaucoma Neg Hx Macular degeneration Neg Hx Ovarian cancer Neg Hx Strabismus Neg Hx Relation Name Status Comments Father Son Social History Tobacco Use Types Packs/Day Years Used Date Smoking Tobacco: Every Day Cigarettes 0.3 30.5 Started: 12/26/1993 Smokeless Tobacco: Never Alcohol Use Standard Drinks/Week Comments No 0 (1 standard drink = 0.6 oz pur e alcohol) Comments Unknown Sex and Gender Information Value Date Recorded Sex Assigned at Not on file Legal Sex Female 1:55 PM EST Gender Identity Not on file Sexual Orientation Not on file Obstetrics History Last Filed Vital Signs Vital Sign Reading Time Taken Comments Blood Pressure 116/72 08/27/2021 10:19 AM EDT Pulse 56 08/27/2021 10:19 AM EDT Temperature - - Respiratory Rate - - Oxygen Saturation - - Inhaled Oxygen Concentration - - Weight 55.3 kg (122 lb) 08/27/2021 10:19 AM EDT Height - - Body Mass Index - - Plan of Treatment Health Maintenance Due Date Last Done Comments DTaP,Tdap,and Td Vaccines (1 - Tdap) 08/10/1983 Hepatitis B Vaccines (1 of 3 - 19+ 3-dose series) 08/10/1983 Pneumococcal Vaccine: 50+ Years (1 of 2 - PCV) 08/10/1983 Pneumococcal Vaccine: Pediatrics (0 to 5 Years) and At-Risk Patients (6 to 64 Years) (1 of 2 - PCV) 08/10/1983 Cervical Cancer Screening: HPV 1985 Zoster Vaccines (1 of 2) 2014 Breast Cancer Screening 08/10/2020 08/11/19 19, 01/06/2017 Cholesterol Screening (Lipid Panel) 04/16/2022 Colorectal Cancer Screening: Colonoscopy 04/16/2022 Depression Screening 04/16/2022 HIV Screening 04/16/2022 Hepatitis C Screening 04/16/2022 Social Influencers of Health Screening 04/16/2022 COVID-19 Vaccine (2023-2 5 season) 2024 10/03/2020, 09/12/2020 Influenza Vaccine (#1) 2024 02/02/2013 RSV Immunization Patients 60 + Years Old (1 - 1-dose 75+ series) 08/10/2039 HIB Vaccines Aged Out No longer eligi ble based on patient's age to complete this topic HPV Vaccines Aged Out No longer eligi ble based on patient's age to complete this topic Hepatitis A Vaccines Aged Out No long er eligible based on patient's age to complete this topic IPV Vaccines Aged Out No longer eligi ble based on patient's age to complete this topic MMR Vaccines Aged Out No longer eligi ble based on patient's age to complete this topic Meningococcal ACWY Vaccine Aged Out N o longer eligible based on patient's age to complete this topic Meningococcal B Vacine Aged Out No lo nger eligible based on patient's age to complete this topic RSV Immunization Patients Under 20 months Aged Out No longer eligible b ased on patient's age to complete this topic Varicella Vaccines Aged Out No longer eligible based on patient's age to complete this topic Procedures Procedure Name Priority Date/Time Associated Diagnosis Comments SCR MAMMO BI INCL CAD Routine 08/10/2018 10:24 AM EDT Encounter for screening mammogram for malignant neoplasm of breast from Last 3 Months or Most Recently Relevant to Health Maintenance Results * SCR MAMMO BI INCL CAD (08/10/2018 10:24 AM EDT) Anatomical Region Laterality Modality Radiographic Diane ging 06/22/2018 11:5 9 AM EST Narrative 08/10/2018 11:34 AM EDT This is a summary report. The complete report is available in the patient's medical record. If you cannot access the medical record, please contact the sending organization for a detailed fax or copy. Full field digital screening mammography, reviewed with CAD and compared to previous. ??The breasts are composed of fatty and fibroglandular tissue. ??Stable bilateral parenchymal asymmetries. Small metallic biopsy clip is stable in position at the middle one third of the superolateral left breast. No suspicious mass, architectural distortion or suspicious calcifications are identified. IMPRESSION: : No mammographic evidence of malignancy. BI-RADS 2-benign. 5 year breast cancer risk assessment 0.7 % Lifetime breast cancer risk assessment 5.3 % Breast cancer risk category Low (<15%) Procedure Note Maria Esther Szymanski, - 04/26/2022 This is a summary report. The complete report is available in thepatient's medical record. If you cannot access the medical record, pleasecontact the sending organization for a detailed fax or copy. Full field digital screening mammography, reviewed with CAD and comparedto previous. The breasts are composed of fatty and fibroglandular tissue.Stable bilateral parenchymal asymmetries. Small metallic biopsy clip isstable in position at the middle one third of the superolateral leftbreast. No suspicious mass, architectural distortion or suspiciouscalcifications are identified. IMPRESSION: : No mammographic evidence of malignancy. BI-RADS 2-benign. 5 year breast cancer risk assessment 0.7 % Lifetime breast cancer risk assessment 5.3 % Breast cancer risk category Low (<15%) Katharina Peguero DO IMG XR PROCEDURES Final Result from Last 3 Months or Most Recently Relevant to Health Maintenance Care Teams Correspondent Relationship Specialty Start Date End Date Too West MD PCP - General Internal Medicine 04/29/21
== END 2024-06-20 10:56 | disposition home or self-care (01) ==
PROVIDERS: PCP Internal Medicine; Visit Provider Internal Medicine
DX: Z00.00 Encounter for general adult medical examination without abnormal findings (principal); M25.552 Pain in left hip; M25.511 Pain in right shoulder; E55.9 Vitamin D deficiency, unspecified

== ENCOUNTER → 2024-06-20 10:01 | Outpatient (BNVA) | payer OTHER, SELFPAY | PROVIDERS: PCP Internal Medicine; Visit Provider Internal Medicine | DX: Z00.00 Encounter for general adult medical examination without abnormal findings (principal); M25.552 Pain in left hip; M25.511 Pain in right shoulder; E55.9 Vitamin D deficiency, unspecified | CPT/HCPCS: 96127; 99396 ==